=== PATIENT | male | born 1980 | race Two or more races ===

== ENCOUNTER 2025-04-30 16:36 | Inpatient (IN) | payer MEDICAID, SELFPAY ==
[2025-04-30] VITALS (38 sets, daily range): BP systolic 81–142; BP diastolic 53–86; PULSE 69–139; RESP 13–29; TEMP 36.8; O2SAT 94–100; BMI 53.8
[2025-04-30] MEDS: LORazepam 2 MG/ML VIAL IVP (16:44)
--- NOTE | 2025-04-30 16:47 | EDNOTE_ITS ---
ED Seizures RME/HPI General Chief Complaint: Seizure Stated Complaint: SEIZURE Time Seen by Provider: 04/30/25 17:13 Arrival date/time: 04/30/25 16:36 Limitations: no limitations RME / HPI RME / HPI Narrative: 45 year old male with history of diabetes presents to the ED BIBA from home for evaluation following a seizure today. Per medics, mother on scene reported hearing a strange noise coming from the patients room. States she found the patient seizing and called 911. Medics state on their arrival, he was in a postictal state, GCS of 5, with snoring respirations. States shortly after the patient became combative, agitated, and began fighting. Reportedly while loading him on to the gurney they witnessed patient having a tonic-clonic seizure, lasting 1 minute. Prehospital BS 315. Mother denies any history of seizures. Related Data Allergies Allergy/AdvReac Type Severity Reaction Status Date / Time No Known Allergies Allergy Verified 06/08/18 17:38 Review of Systems Review of Systems ROS Unobtainable: unobtainable due to mental status Past Medical History Past Medical History CARDIAC: Negative Congestive Heart Failure RESPIRATORY: Negative Chronic Obstructive Pulmonary Disease (COPD) GENITOURINARY: Negative Renal Disease ENDOCRINE: Positive Diabetes Mellitus Type 2; Negative Diabetes Mellitus Type 1 Social History SMOKING STATUS: Unknown if ever smoked ED Exam General Limitations: Present no limitations General appearance: Present obese and other (Patient arrived combative, agitated with intermittent agonal respirations) Head Head exam: Present atraumatic Eye Eye exam: Present EOMI ENT ENT exam: Present normal exam, normal oropharynx and mucous membranes moist Neck Neck exam: Present normal inspection, full ROM and trachea midline Chest Chest inspection: Present normal inspection and symmetric chest wall rise Respiratory Respiratory exam: Present normal lung sounds bilaterally and other (Intermittent agonal respirations, saturating 93-94% on room air) Cardiovascular Cardiovascular exam: Present normal rhythm, tachycardia and normal heart sounds Abdominal Exam Abdominal exam: Present soft and normal bowel sounds Extremities Exam Extremities exam: Present normal inspection and full ROM; Absent pedal edema Neurological Exam Neurological exam: Present other (Patient arrived combative, agitated, nonresponsive to verbal stimuli, responsive to painful stimuli, does not answer questions. 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 NOW Care 04/30/25 17:21 Active Continuous Pulse Oximetry NOW Care 04/30/25 17:21 Active Emergency Titration Protocol Stat Care 04/30/25 18:19 Ordered Flu & Pneumonia Vaccine Screen ONCE Care 04/30/25 19:10 Active Insert IV NOW Care 04/30/25 17:21 Active Intubation NOW Care 04/30/25 17:07 Completed NPO NOW Care 04/30/25 19:11 Active Neuro Check Q1H Care 04/30/25 19:10 Active Notify provider NEEDED Care 04/30/25 19:11 Active Seizure precautions NEEDED Care 04/30/25 19:11 Active Diet NPO (NOW) Diet 04/30/25 19:[address] abdomen pelvis wo con Stat Exams 04/30/25 19:[address] angio abdomen pelvis Stat Exams 04/30/25 19:[address] head/brain wo con Stat Exams 04/30/25 17:21 Stop Req XR chest 1V portable Stat Exams 04/30/25 17:21 Completed ABG [Arterial Blood Gas] Stat Lab 04/30/25 21:00 Ordered Arterial Blood Gas Stat Lab 04/30/25 18:19 Completed Blood Culture (Lab) Stat Lab 04/30/25 18:55 Received CBC AM DRAW Lab 05/01/25 05:00 Ordered CBC AM DRAW Lab 05/02/25 05:00 Ordered CBC AM DRAW Lab 05/03/25 05:00 Ordered CBC Stat Lab 04/30/25 16:55 Completed Comprehensive Metabolic Panel Stat Lab 04/30/25 16:55 Completed Lactate (Lactic Acid) Stat Lab 04/30/25 16:55 Results Lactic Acid [Lactate (Lactic Acid)] Q4H Lab 04/30/25 19:13 Ordered Lactic Acid [Lactate (Lactic Acid)] Q4H Lab 04/30/25 23:13 Ordered Lactic Acid [Lactate (Lactic Acid)] Q4H Lab 05/01/25 03:13 Ordered Lactic Acid [Lactate (Lactic Acid)] Q4H Lab 05/01/25 07:13 Ordered Lactic Acid [Lactate (Lactic Acid)] Q4H Lab 05/01/25 11:13 Ordered Lipid Panel AM DRAW Lab 05/01/25 05:00 Ordered Magnesium AM DRAW Lab 05/01/25 05:00 Ordered Magnesium AM DRAW Lab 05/02/25 05:00 Ordered Magnesium AM DRAW Lab 05/03/25 05:00 Ordered Magnesium [Magnesium] Stat Lab 04/30/25 16:55 Completed Path Review Blood Smear Stat Lab 04/30/25 16:55 Completed Phosphorous Stat Lab 04/30/25 16:55 Completed Prothrombin Time with INR Stat Lab 04/30/25 16:55 Completed Renal Function Panel AM DRAW Lab 05/01/25 05:00 Ordered Renal Function Panel AM DRAW Lab 05/02/25 05:00 Ordered Renal Function Panel AM DRAW Lab 05/03/25 05:00 Ordered Sputum Culture and Gram Stain Routine Lab 04/30/25 17:36 Received Urinalysis Stat Lab 04/30/25 17:29 Completed Acetaminophen Ivpb [Ofirmev Inj] Med 04/30/25 19:13 Active 1,000 mg in 100 ml IV Q6HR Enoxaparin [Lovenox] Med 04/30/25 21:00 Active 40 mg SC QPM Etomidate Inj [Amidate Inj] Med 04/30/25 16:42 Discontinued 20 mg .ROUTE .STK-MED ONE LORazepam [Ativan Inj] Med 04/30/25 16:42 Discontinued 2 mg .ROUTE .STK-MED ONE LORazepam [Ativan Inj] Med 04/30/25 16:46 Discontinued 2 mg IVP X1 ONE Ondansetron Inj [Zofran Inj] Med 04/30/25 19:10 Active 4 mg IVP Q6H PRN Propofol 1,000 mg Ivpb [Diprivan Ivpb] Med 04/30/25 17:10 Discontinued 1,000 mg in 100 ml IV .STK-MED Propofol 1,000 mg Ivpb [Diprivan Ivpb] Med 04/30/25 17:14 Active 1,000 mg in 100 ml IV 5 mcg/kg/min Propofol Inj [Diprivan Inj] Med 04/30/25 17:13 Discontinued 150 mg IV X1 ONE Propofol Inj [Diprivan Inj] Med 04/30/25 17:15 Discontinued 200 mg IV .STK-MED ONE Propofol Inj [Diprivan Inj] Med 04/30/25 17:54 Discontinued 200 mg IV X1 ONE Propofol Inj [Diprivan Inj] Med 04/30/25 17:26 Discontinued 50 mg IV X1 ONE Ringers Lactated 1000 ml [Lactated Ringers] 1,000 ml Med 04/30/25 19:10 Active IV 999 mls/hr Sodium Chloride 0.9% 1000 ml [Ns] 1,000 ml Med 04/30/25 17:21 Discontinued IV 999 mls/hr Sodium Chloride 0.9% 1000 ml [Ns] 1,000 ml Med 04/30/25 19:10 Active IV 999 mls/hr Succinylcholine Inj [Anectine Inj] Med 04/30/25 16:46 Discontinued 150 mg IV X1 ONE Succinylcholine Inj [Anectine Inj] Med 04/30/25 16:43 Discontinued 200 mg .ROUTE .STK-MED ONE cefTRIAXone [Rocephin] 2 gm Med 04/30/25 17:24 Discontinued SODIUM CHLORIDE 0.9% (Popper) [Ns 0.9% (P)] 50 ml IV X1 cefTRIAXone/D5w 1gm IV premix [Rocephin/D5w 1gm IV Med 05/01/25 09:00 Active premix] 1 gm in 50 ml IV QDAY fentaNYL 2,500 MCG/250 ML BAG [Sublimaze Inj 2,500 MCG/ Med 04/30/25 18:53 Active 250 ML BAG] 2,500 mcg in 250 ml IV 25 mcg/hr levETIRAcetam INJ [Keppra Inj] Med 04/30/25 16:45 Discontinued 1,000 mg IVP X1 ONE Code Status Routine Oth 04/30/25 19:10 Ordered EKG (RT) Stat RT 04/30/25 19:10 Ordered Volume Ventilator Stat RT 04/30/25 17:08 Active Vital Signs Vital signs: Vital Signs Pulse Rate 139 H 04/30/25 16:46 Respiratory Rate 24 H 04/30/25 16:46 Blood Pressure 88/63 L 04/30/25 16:46 Pulse Oximetry (%) 97 04/30/25 16:46 Oxygen Delivery Method Room Air 04/30/25 16:46 Pulse ox is 97% on room air which is adequate. PROCEDURES: Intubation Time out performed: Yes sedative: other (2mg Ativan IVP ) paralytic: Succinylcholine Mg Given: 150 Laryngoscope: fiber optic video scope Assist Device Used: fiber optic device ET Tube Size: 8 ET Tube Uncuffed: No Tube Secured Depth (cm): 24 Tube Secured Location: lips Tube Placement Confirmation: visualized tube passing through cords, equal breath sounds bilaterally, no breath sounds over epigastrium and confirmation by capnometry Patient Tolerated Procedure: well and no complications Intubation Complications: none Seizure MDM Narrative MDM Narrative:: IAngela, kailyn scribing for and in the presence of Dr. Fagan. 1644: Given 2mg IVP Ativan. 1645: Patient witnessed having a seizure, lasting ~ 30 seconds. 1648: Given 150mg Succinylcholine. 165: Intubated with 8.0 ET measuring 24cm at the lip. BS 321. 1652: Given 1 gram of Keppra. 1725: Patient started on Propofol drip for sedation and I gave an 200mg IVP of Propofol. 1750: Notified by RN that the patient is not adequately sedation. Propofol was increased and plan to give a second IVP of Propofol. 1850: Notified by RN that the patient is moving in bed. Plan to wean off the Propol and switch sedation to Fentanyl drip. 1900: I spoke with ICU resident Dr. Velasquez. Discussed patients PMHx, HPI, ED course, exam findings, labs, and radiology results. Patient accepted for admission. Patient data External records reviewed:: [facility] previous records and EMS form Clinical information provided by:: EMS Social determinants that could affect healthcare access:: none Patient has the following chronic illnesses:: DM How is presenting disease/condition affected by chronic disease/condition?: uneffected by Evaluation data The following diagnostics were reviewed and interpreted by me:: lab results and radiology exam(s) Lab and/or radiology exams considered but not ordered:: None Interpretation Summary: Ordering Physician: Rolando Fagan MD Date of Service: 04/30/25 Procedure(s): XR chest 1V portable Accession Number(s): [id number] cc: Rolando Fagan MD; Hector Preston MD; NO PRIMARY/FAMILY,PHYSICIAN~ EXAMINATION: AP chest single view TECHNIQUE: AP portable supine chest single view Date and time: April 30, 2025, 1819 hours INDICATIONS: Cough and shortness of breath today. FINDINGS: Mild prominence left ventricle Endotracheal tube tip 6 cm above luis armando. Orogastric tube in the stomach, the tip is below the level of the film Moderate vascular congestion. No aspiration pneumonia IMPRESSION: Mild enlargement left ventricle Moderate vascular congestion Dictated By: Hector Preston MD Signed By: <Electronically signed by Hector Preston MD in OV> 04/30/25 8338 Medications / Prescriptions Medications or Prescriptions considered but not ordered:: None Medication administrations:: Medication Administration History Enoxaparin Sodium (Enoxaparin Sod Inj 40 Mg/0.4 Ml Syringe) 40 mg SC QPM CRISTIANA Stop: 05/14/25 20:59 Propofol (Diprivan Ivpb) 1,000 mg in 100 mls @ 5.105 mls/hr IV .[id number] PRN; Protocol PRN Reason: PER PROTOCOL Stop: 05/30/25 17:13 Last Titration: 04/30/25 18:46 Dose: 30 mcg/kg/min, 30.633 mls/hr Documented By: Titration: 04/30/25 17:54 Dose: 25 mcg/kg/min, 25.527 mls/hr Documented By: Titration: 04/30/25 17:30 Dose: 10 mcg/kg/min, 10.211 mls/hr Documented By: Admin: 04/30/25 17:25 Dose: 5 mcg/kg/min, 5.105 mls/hr Documented By: VIMAL Co-signed By: Fentanyl Citrate (Sublimaze Inj 2,500 Mcg/250 Ml Bag) 2,500 mcg in 250 mls @ 2.5 mls/hr IV .Q24H PRN; Protocol PRN Reason: PER PROTOCOL Stop: 05/05/25 18:52 Last Admin: 04/30/25 19:12 Dose: 25 mcg/hr, 2.5 mls/hr Documented By: Co-signed By: SANTK2 Acetaminophen (Ofirmev Inj) 1,000 mg in 100 mls @ 250 mls/hr IV Q6HR PRN PRN Reason: fever >99.9 Stop: 05/01/25 12:23 Lactated Ringer's (Lactated Ringers) 1,000 mls @ 999 mls/hr IV .Q1H1M ONE Stop: 04/30/25 20:10 Sodium Chloride (Ns) 1,000 mls @ 999 mls/hr IV .Q1H1M ONE Stop: 04/30/25 20:10 Ceftriaxone Sodium/Dextrose (Rocephin/D5w 1gm Iv Premix) 1 gm in 50 mls @ 100 mls/hr IV QDAY CRISTIANA Stop: 05/07/25 08:59 Ondansetron HCl (Ondansetron Inj 2 Mg/Ml Inj 2 Ml) 4 mg IVP Q6H PRN; Protocol PRN Reason: NAUSEA OR VOMITING Stop: 05/30/25 19:09 Discontinued Medications Etomidate (Etomidate Inj 2 Mg/Ml Vial 10 Ml) Confirm Administered Dose 20 mg .ROUTE .STK-MED ONE Stop: 04/30/25 16:43 Last Admin: 04/30/25 17:19 Dose: Not Given Documented By: VIMAL Non-Admin Reason: Cancelled by Provider Propofol (Diprivan Ivpb) Confirm Administered Dose 1,000 mg in 100 mls @ ud IV .STK-MED ONE Stop: 04/30/25 17:11 Last Admin: 04/30/25 17:24 Dose: Not Given Documented By: VIMAL Non-Admin Reason: Override Medication Sodium Chloride (Ns) 1,000 mls @ 999 mls/hr IV .Q1H1M ONE Stop: 04/30/25 18:21 Last Admin: 04/30/25 18:04 Dose: 999 mls/hr Documented By: DO Ceftriaxone Sodium 2 gm/ (Sodium Chloride) 50 mls @ 100 mls/hr IV X1 ONE Stop: 04/30/25 17:53 Last Infusion: 04/30/25 18:47 Dose: Infused Documented By: Admin: 04/30/25 18:11 Dose: 100 mls/hr Documented By: DO Levetiracetam (Levetiracetam Inj 100 Mg/Ml Vial 5ml) 1,000 mg IVP X1 ONE Stop: 04/30/25 16:46 Last Admin: 04/30/25 17:23 Dose: 1,000 mg Documented By: VIMAL Lorazepam (Lorazepam 2 Mg/Ml Vial) Confirm Administered Dose 2 mg .ROUTE .STK- MED ONE Stop: 04/30/25 16:43 Last Admin: 04/30/25 16:49 Dose: Not Given Documented By: VIMAL Non-Admin Reason: Duplicate Medication on eMAR Lorazepam (Lorazepam 2 Mg/Ml Vial) 2 mg IVP X1 ONE Stop: 04/30/25 16:47 Last Admin: 04/30/25 16:44 Dose: 2 mg Documented By: LF Propofol (Propofol Inj 10 Mg/Ml Vial 20 Ml) Confirm Administered Dose 200 mg IV .STK-MED ONE Stop: 04/30/25 17:16 Last Admin: 04/30/25 17:26 Dose: Not Given Documented By: LF Non-Admin Reason: Duplicate Medication on eMAR Propofol (Propofol Inj 10 Mg/Ml Vial 20 Ml) 150 mg IV X1 ONE Stop: 04/30/25 17:14 Last Admin: 04/30/25 17:18 Dose: 150 mg Documented By: DO Comments: GIVEN BY DR FAGAN TO 20G LEFT HAND Propofol (Propofol Inj 10 Mg/Ml Vial 20 Ml) 50 mg IV X1 ONE Stop: 04/30/25 17:27 Last Admin: 04/30/25 18:15 Dose: 50 mg Documented By: DO Comments: GIVEN BY DR FAGAN TO 20G LEFT HAND. USED REMAINDER OF PRIOR 150 DOSE TO EQUAL 200MG Propofol (Propofol Inj 10 Mg/Ml Vial 20 Ml) 200 mg IV X1 ONE Stop: 04/30/25 17:55 Last Admin: 04/30/25 18:00 Dose: 200 mg Documented By: DO Comments: GIVEN BY DR FAGAN TO 20G L HAND Succinylcholine Chloride (Succinylcholine Inj 20 Mg/Ml Vial 10 Ml) Confirm Administered Dose 200 mg .ROUTE .STK-MED ONE Stop: 04/30/25 16:44 Last Admin: 04/30/25 16:49 Dose: Not Given Documented By: LF Non-Admin Reason: Duplicate Medication on eMAR Succinylcholine Chloride (Succinylcholine Inj 20 Mg/Ml Vial 10 Ml) 150 mg IV X1 ONE Stop: 04/30/25 16:47 Last Admin: 04/30/25 16:48 Dose: 150 mg Documented By: LF See above Consultations Consultation(s) initiated? (list below): Yes Consultation #1 (Physician, Specialty, Details): See above Diagnosis Seizure Differential Diagnosis: intractable seizure disorder, new onset seizure, epileptic seizure and status epilepticus Most likely diagnosis given after review of the tests above:: New onset seizure Respiratory failure Elevated lactic acid Leukocytosis Admission Indicated Admission indicated?: indicated Admission Request Was there a request for admission?: Yes Admission Attestation Admission request attestation: Discussed case with [] from Hospitalist service regarding admission. Discussed patients ED course, exam findings, labs, and radiology results. The Hospitalist [agrees,declines] to accept the patient for admission. Disposition Plan Disposition Plan: Admit Critical Care Time Critical Care Time Critical Care Time: Yes Total Critical Care Time (min.): 60 Attestation: The high probability of sudden, clinically significant deterioration in the patient's condition required the highest level of my preparedness to intervene urgently. The services I provided to this patient were to treat and/or prevent clinically significant deterioration. Services included the following: chart data review, reviewing nursing notes and/or old charts, documentation time, performance management consultant collaboration regarding findings and treatment options, medication orders and management, direct patient care, vital sign assessments and ordering, interpreting and reviewing diagnostic studies and lab tests. Aggregate critical care time includes only time during which I was engaged in work directly related to the patient's care, as described above, whether at bedside or elsewhere in the Emergency Department. It did not include time spent performing other reported procedures or the services of residents, students, nurses or physician assistants. Discharge Plan Plan Patient Disposition: Admit Acute Care w/in Hospital Problem List Clinical Impression: New onset seizure, Respiratory failure, Elevated lactic acid level, Leukocytosis
[2025-04-30] MEDS: SUCCINYLCHOLINE INJ 20 MG/ML VIAL 10 ML 150 MG IV (16:48)
[2025-04-30] MEDS: PROPOFOL INJ 10 MG/ML VIAL 20 ML 150 MG IV (17:18)
--- NOTE | 2025-04-30 17:21 | XR_ITS ---
EXAMINATION: AP chest single view TECHNIQUE: AP portable supine chest single view Date and time: April 30, 2025, 181 hours INDICATIONS: Cough and shortness of breath today. FINDINGS: Mild prominence left ventricle Endotracheal tube tip 6 cm above luis armando. Orogastric tube in the stomach, the tip is below the level of the film Moderate vascular congestion. No aspiration pneumonia IMPRESSION: Mild enlargement left ventricle Moderate vascular congestion
[2025-04-30] MEDS: levETIRAcetam INJ 100 MG/ML VIAL 5ML 1000 MG IVP (17:23)
[2025-04-30] MEDS: PROPOFOL 1,000 MG IVPB 1,000 MG/100 ML VIAL 5.105 MG IV (17:25)
[2025-04-30 17:48] LABS: Basophils # (Auto) 0.1 Thou/mm3 (0.0-0.2); Basophils % (Auto) 0 % (0-2.5); Eosinophils # (Auto) 0.3 Thou/mm3 (0.0-0.5); Eosinophils % (Auto) 2 % (0-10); Hematocrit 46.2 % (41.0-53.0); Hemoglobin 15.2 g/dL (13.5-16.0); Immature Granulocytes Auto 0.23 Thou/mm3 (0.00-0.00); Lymphocytes # (Auto) 9.2 Thou/mm3 (1.0-4.8); Lymphocytes % (Auto) 47 % (10-50); Mean Corpuscular HGB Conc 32.9 g/dl (31.0-37.0); Mean Corpuscular Hemoglobin 30.2 pg (25.0-35.0); Mean Corpuscular Volume 92 fL (80-100); Monocytes # (Auto) 1.7 Thou/mm3 (0.0-0.8); Monocytes % (Auto) 9 % (0-12); Neutrophils # (Auto) 8.1 Thou/mm3 (1.8-7.7); Neutrophils % (Auto) 41 % (37-80); Nucleated Red Blood Cell # 0.00 Thou/mm3 (0.00-0.00); Nucleated Red Blood Cell % 0 /100 WBC (0); Platelet Count 284 Thou/mm3 (140-440); RDW Standard Deviation 45.4 fL (35.1-43.9); Red Blood Count 5.04 Miln/mm3 (4.50-5.90); White Blood Count 19.6 Thou/mm3 (3.8-10.6)
[2025-04-30 17:54] LABS: Lactate (Lactic Acid) 15.0 mMol/L (0.4-2.0)
[2025-04-30] MEDS: PROPOFOL INJ 10 MG/ML VIAL 20 ML 200 MG IV (18:00)
[2025-04-30 18:03] LABS: Collection Type, Urine Clean Catch
[2025-04-30] MEDS: SODIUM CHLORIDE 0.9% 1000 ML 1,000 ML 999 ML IV ×2 (18:04→20:08)
[2025-04-30 18:07] LABS: Alanine Aminotransferase 39 U/L (10-49); Albumin, Serum 4.6 gm/dL (3.5-5.0); Albumin/Globulin Ratio 1.2 (1.2-2.2); Alkaline Phosphatase 113 U/L (46-116); Anion Gap 22 (7-16); Aspartate Amino Transferase 30 U/L (0-34); BUN/Creatinine Ratio 13 Ratio (12-20); Bilirubin,Total 0.5 mg/dL (0.3-1.2); Blood Urea Nitrogen 13 mg/dL (9-23); Calcium 9.1 mg/dL (8.3-10.6); Calcium (Corrected) 9.1 mg/dL (8.5-10.1); Carbon Dioxide 19.9 mMol/L (20.0-31.0); Chloride 101 mMol/L (98-107); Creatinine (Component) 1.0 mg/dL (0.6-1.3); Estimated Creatinine Clearance 144.5 mL/min (>60); Globulin 3.7 gm/dL (2.3-3.5); Glucose 352 mg/dL (74-106); Magnesium 2.2 mg/dL (1.6-2.6); Osmolality,Calculated 299 (275-295); Phosphorous 5.5 mg/dL (2.4-5.1); Potassium 3.7 mMol/L (3.4-5.1); Sodium 143 mMol/L (136-145); Total Protein 8.3 gm/dL (5.7-8.2); eGFR > 60 See Note
[2025-04-30] MEDS: cefTRIAXone 2 GM in SODIUM CHLORIDE 0.9% (Popper) 50 ML IV (18:11)
[2025-04-30] MEDS: PROPOFOL INJ 10 MG/ML VIAL 20 ML 50 MG IV (18:15)
[2025-04-30 18:21] LABS: INR 1.1 (0.9-1.3); Prothrombin Time 11.4 Seconds (9.0-12.2)
[2025-04-30 18:27] LABS: Bacteria,Urine Rare; Bilirubin,Urine Negative (Negative); Blood,Urine 1+ (Negative); Clarity,Urine Turbid (Clear/Hazy); Color,Urine Lt-Yellow (Lt Yel-Yel); Glucose, Urine 4+ (Negative); Hyaline Casts,Urine 9 /hpf (0-1); Ketones,Urine Trace (Negative); Leukocyte Esterase,Urine Negative (Negative); Nitrite,Urine Negative (Negative); PH,Urine 6.0 (5.0-7.0); Protein,Urine 2+ (Neg - Trace); RBC,Urine 15 /hpf (0-3); Specific Gravity,Urine 1.025 (1.001-1.035); Squamous Epithelial Cell,Urine 10 /hpf (0-5); Urobilinogen,Urine Negative mg/dL (0.0-1.0); WBC,Urine 9 /hpf (0-5)
[2025-04-30 18:34] LABS: Base Excess -4 (-3-3); HCO3 23 mEq/L (20-26); Inspired Oxygen, FIO2 21 %; O2 Saturation 100 % (91-98); PCO2 48 mmHg (32.0-48.0); PO2 191 mmHg (83-108); pH, Arterial 7.28 (7.35-7.45)
[2025-04-30 18:35] LABS: Allen Test Not Performed; Puncture Site Right Brachial
--- NOTE | 2025-04-30 18:50 | PC.NURSE ---
INFORMED DR FAGAN THAT PT IS MOVING AND OPENING EYES. PER DR FAGAN HE WILL ORDER ANOTHER SEDATION MEDICATION AND WANTS TO TITRATE PT OFF PROPOFOL AT THIS TIME
[2025-04-30] MEDS: fentaNYL 2,500 MCG/250 ML BAG 2,500 MCG/250 ML BAG IV (19:12)
--- NOTE | 2025-04-30 19:15 | XR_ITS ---
Examination: CT abdomen and pelvis without contrast. Coronal 3-D reconstructions. Sagittal 2-D reconstructions. Date and time of exam: April 30, 2025, 2025 hours INDICATIONS: Abdominal pain today, clinical diagnosis mesenteric ischemia CTDI: vol (mGy): 27.51 DLP: (mGycm): 1788 Technique: Axial images of the abdomen have been obtained, 3 mm slice thickness Intravenous contrast material has not been administered. Low dose protocols were performed. One or more of the following dose reduction techniques were used; automated exposure control, adjustment of the mA and/or KV according to patient size, use of iterative reconstruction technique. Findings: Bibasilar pneumonia No visualized liver or splenic lesion Gallstones Gallbladder wall appears thickened No pancreatic or adrenal mass No renal or ureteral calculi No hydronephrosis Colonic diverticulosis, no diverticulitis Normal appendix No bowel obstruction Urinary bladder contracted around a [place] catheter Grade 1 spondylolisthesis L5 on S1 with advanced degenerative disc disease L5-S1 IMPRESSION: Bibasilar pneumonia Recommend hepatobiliary sonography follow-up to exclude calculus cholecystitis No ischemic bowel noted on this limited noncontrast study, if ischemic bowel is a clinical consideration recommend CTA abdomen/pelvis post contrast follow-up Colonic diverticulosis No bowel obstruction
[2025-04-30 19:17] LABS: Path Review Blood Smear Sent to Pathologist
[2025-04-30 19:58] LABS: Creatine Kinase 57 U/L (34-171)
[2025-04-30] MEDS: RINGERS LACTATED 1000 ML 1,000 ML 999 ML IV (20:09)
[2025-04-30] MEDS: PROPOFOL 1,000 MG IVPB 1,000 MG/100 ML VIAL 30.633 MG IV ×2 (20:09→23:36)
--- NOTE | 2025-04-30 20:10 | XR_ITS ---
Examination: CT brain head without contrast. 2-D sagittal coronal reconstructions Date and time of exam: April 30, 2025, 2023 hours,. INDICATIONS: Altered mental status today CTDI: vol (mGy): 68.1 DLP: (mGycm): 1421 Technique: Multiple CT axial sections of the brain have been obtained, 5 mm slice thickness. Contrast has not been administered. 2-D sagittal, coronal reconstructions have been obtained Low dose protocols were performed. One or more of the following dose reduction techniques were used; automated exposure control, adjustment of the mA and/or KV according to patient size, use of iterative reconstruction technique. Findings: 32 x 30 mm calcified tumor mass left frontal convexity with marked surrounding edema Shift of the frontal horns to the right at least 5 mm Ventricles are not enlarged Fourth ventricle midline Cranial vault intact IMPRESSION: 32 x 30 mm calcified tumor mass left frontal convexity with marked surrounding edema, most consistent with meningioma Recommend MRI brain follow-up pre and postcontrast
[2025-04-30 20:44] LABS: Reflex Lactate? Y
--- NOTE | 2025-04-30 20:46 | ESHP_ITS ---
Documentation for date of: 04/30/25 HPI History of Present Illness History of present illness: Chief complaint: New onset seizure-like activity, unresponsive HPI: Mr. Aldrich is a 45-year-old male with medical issues of obesity BMI 53.8, no known medical conditions, who was brought into the ED from home by ambulance after seizure-like activity at home. Most of the history obtained from ED documentation, as per mother at bedside, patient has never had this seizure-like symptoms in the past. Paramedics reported that mother was present at the scene and witnessed hearing strange noises from the patient's room. When paramedics arrived at scene patient was in a postictal state, GCS of 5 and snoring. After about 5-10 minutes patient became combative agitated followed by a tonic-clonic seizure lasting about 1 minute. Fingerstick blood glucose check en route to the hospital was 315. In the ED, vitals showed Tachycardia 128-130 bpm, tachypnea 21?24, blood pressure 153/83., Temp within normal limits. Initial blood work was remarkable for WBC 19.6 with lymphocyte and neutrophil predominance, chemistry panel showed blood glucose 352, hyperphosphatemia 5.5. ABG showed pH 7.28, CO2 48 and bicarb 19.9 on CHEM panel. Lactic acid 15 at 7 PM lab draw. Urinalysis remarkable for 2+ protein, 4+ glucose, 1+ blood, 15 RBC, 10 epithelial cells and 9 hyaline cast, 9 WBC and rare bacteria. On imaging, chest x-ray remarkable for mild perihilar congestion, no consolidations noted. CT abdomen pelvis showed colonic diverticulosis, thickened gallbladder, but no signs of ischemic bowel. Head CT ordered by ED, but not taken. Patient was given 2 L bolus in the ED, in addition to 1 g loading dose of Keppra. He was also started on propofol and fentanyl post intubation. He was also given loading dose 2 g Rocephin for possible UTI. ED attending Dr. Garcia called night hospitalist team at 1904 on 04/30/2025. Per ED physician, he contacted medical imaging technician Dr. Lynn and provided this patient information. Per Dr Garcia- Dr Lynn recommended admission to ICU. Patient was admitted for new onset seizures s/p intubation. Neurology consulted for further recommendations. Pending Head CT at this time of admission. Review of Systems Review of Systems ROS Unobtainable: unobtainable due to mental status Exam Vital Signs Temp Pulse Resp BP Pulse Ox O2 Del Method FiO2 98.2 F 90 18 81/58 L 100 Mechanical Ventilation 100 04/30/25 19:57 04/30/25 19:57 04/30/25 19:57 04/30/25 19:57 04/30/25 19:57 04/30/25 19:57 04/30/25 17:22 Narrative Exam Constitutional Large body habitus, Obese BMI 53 HEENT Vision grossly intact, PERRL. Patent nares. Trachea midline. Intubated on MV Respiratory Chest normal on inspection, breath sounds on auscultation bilaterally. Cardiovascular S1 and S2 audible, RRR. No murmurs or carotid bruit. No gross JVD. Abdominal Soft and BS + Musculoskeletal Extremities tone within normal limits. No LE edema. Neurological Minimally responsive to pain, GCS E2 V(NT) M4 Skin Small LT buttock abscess/folliculitis, draining purulent discharge Results: Labs 05/02/25 04:35 05/02/25 19:50 Labs: Short CBC 04/30/25 Range/Units 16:55 WBC 19.6 H (3.8-10.6) Thou/mm3 Hgb 15.2 (13.5-16.0) g/dL Hct 46.2 (41.0-53.0) % Plt Count 284 (140-440) Thou/mm3 BMP 04/30/25 16:55 Sodium 143 Potassium 3.7 Chloride 101 Carbon Dioxide 19.9 L BUN 13 Creatinine 1.0 Glucose 352 H Calcium 9.1 Cardiac Enzymes 04/30/25 Range/Units 16:55 Total Creatine Kinase 57 (34-171) U/L Liver Function 04/30/25 Range/Units 16:55 Total Bilirubin 0.5 (0.3-1.2) mg/dL AST 30 (0-34) U/L ALT 39 (10-49) U/L Alkaline Phosphatase 113 (46-116) U/L Albumin 4.6 (3.5-5.0) gm/dL Urine 04/30/25 Range/Units 17:29 Urine Color Lt-Yellow (Lt Yel-Yel) Urine Clarity Turbid A (Clear/Hazy) Urine pH 6.0 (5.0-7.0) Ur Specific [place] 1.025 (1.001-1.035) Urine Protein 2+ A (Neg - Trace) Urine Glucose (UA) 4+ A (Negative) ABG Interpretation ABG results: 04/30/25 18:19 ABG pH 7.28 L ABG pCO2 48 ABG pO2 191 H ABG HCO3 23 ABG O2 Saturation 100 H ABG Base Excess -4 L Quality Measures Quality Measures VTE prophylaxis Medications Home Medications and Allergies Home Medications ?Medication ?Instructions ?Recorded ?Confirmed ?Type No Known Home Medications 05/02/2504/09 History Allergies Allergy/AdvReac Type Severity Reaction Status Date / Time No Known Allergies Allergy Verified 06/08/18 17:38 Visit Medications Enoxaparin Sodium (Enoxaparin Sod Inj 40 Mg/0.4 Ml Syringe) 40 mg SC QPM [facility] Stop: 05/14/25 20:59 Propofol (Diprivan Ivpb) 1,000 mg in 100 mls @ 5.105 mls/hr IV .[id number] PRN; Protocol PRN Reason: PER PROTOCOL Stop: 05/30/25 17:13 Last Admin: 04/30/25 20:09 Dose: 30 mcg/kg/min, 30.633 mls/hr Acetaminophen (Ofirmev Inj) 1,000 mg in 100 mls @ 250 mls/hr IV Q6HR PRN PRN Reason: fever >99.9 Stop: 05/01/25 12:23 Ceftriaxone Sodium/Dextrose (Rocephin/D5w 1gm Iv Premix) 1 gm in 50 mls @ 100 mls/hr IV QDAY CRISTIANA Stop: 05/07/25 08:59 Midazolam HCl (Versed Pf Inj In Ns Premix) 100 mg in 100 mls @ 1 mls/hr IV .Q24H PRN; Protocol PRN Reason: PER PROTOCOL Stop: 05/05/25 19:48 Ondansetron HCl (Ondansetron Inj 2 Mg/Ml Inj 2 Ml) 4 mg IVP Q6H PRN; Protocol PRN Reason: NAUSEA OR VOMITING Stop: 05/30/25 19:09 Discontinued Medications Sodium Chloride (Ns) 1,000 mls @ 999 mls/hr IV .Q1H1M ONE Stop: 04/30/25 18:21 Last Admin: 04/30/25 18:04 Dose: 999 mls/hr Ceftriaxone Sodium 2 gm/ (Sodium Chloride) 50 mls @ 100 mls/hr IV X1 ONE Stop: 04/30/25 17:53 Last Infusion: 04/30/25 18:47 Dose: Infused Fentanyl Citrate (Sublimaze Inj 2,500 Mcg/250 Ml Bag) 2,500 mcg in 250 mls @ 2.5 mls/hr IV .Q24H PRN; Protocol PRN Reason: PER PROTOCOL Stop: 05/05/25 18:52 Last Titration: 04/30/25 19:34 Dose: 200 mcg/hr, 20 mls/hr Lactated Ringer's (Lactated Ringers) 1,000 mls @ 999 mls/hr IV .Q1H1M ONE Stop: 04/30/25 20:10 Last Admin: 04/30/25 20:09 Dose: 999 mls/hr Sodium Chloride (Ns) 1,000 mls @ 999 mls/hr IV .Q1H1M ONE Stop: 04/30/25 20:10 Last Admin: 04/30/25 20:08 Dose: 999 mls/hr Levetiracetam (Levetiracetam Inj 100 Mg/Ml Vial 5ml) 1,000 mg IVP X1 ONE Stop: 04/30/25 16:46 Last Admin: 04/30/25 17:23 Dose: 1,000 mg Lorazepam (Lorazepam 2 Mg/Ml Vial) 2 mg IVP X1 ONE Stop: 04/30/25 16:47 Last Admin: 04/30/25 16:44 Dose: 2 mg Propofol (Propofol Inj 10 Mg/Ml Vial 20 Ml) 150 mg IV X1 ONE Stop: 04/30/25 17:14 Last Admin: 04/30/25 17:18 Dose: 150 mg Propofol (Propofol Inj 10 Mg/Ml Vial 20 Ml) 50 mg IV X1 ONE Stop: 04/30/25 17:27 Last Admin: 04/30/25 18:15 Dose: 50 mg Propofol (Propofol Inj 10 Mg/Ml Vial 20 Ml) 200 mg IV X1 ONE Stop: 04/30/25 17:55 Last Admin: 04/30/25 18:00 Dose: 200 mg Succinylcholine Chloride (Succinylcholine Inj 20 Mg/Ml Vial 10 Ml) 150 mg IV X1 ONE Stop: 04/30/25 16:47 Last Admin: 04/30/25 16:48 Dose: 150 mg Assessment & Plan Plan Patient is a 45 year old male admitted for seizures, new onset s/p intubation for resp support. NEURO Intractable seizure, new onset Acute encephalopathy On sedation Dx: - Per mother and paramedics, patient had new onset seizure-like activity at home and was brought to the ED - He was given 2 L IV fluid bolus in the ED in addition to 1 g loading dose of Keppra - Patient was intubated in the ED to protect airway - Patient was also started on fentanyl and propofol for sedation after intubation. - Received call for admission @ 1904. Per ED physician, sign out given to Dr. Lynn who recommended admission to ICU. Rx: - Admitted to ICU for further management - Head CT ordered change from routine to STAT at 1900. Follow-up results - Sedation changed to propofol and Versed, continue to maintain RASS goal - In-house neurology consulted for further evaluation - If acute findings of mass/midline shift on head CT, will start process to transfer patient for urgent neurosurgical intervention CVS No active problems PULM AHRF- Intubated on mech vent Dx: - Intubated in the ED to protect airway given declining mental status, GCS 3 - Started on propofol and fentanyl in the ED Rx: - Continue sedation with propofol and Versed - Continue management with MV: AC/VC VT 500 RR 18 PEEP 5 - Titrate down on sedatives, will reevaluate with q1H neurochecks GI/Hep Colonic diverticulosis GB thickening/calcification Dx: - CT abdomen pelvis : colonic diverticulosis, thickened gallbladder, but no signs of ischemic bowel. Rx: No active symptoms at this time RENAL Anion gap metabolic acidosis Hyperosmolar hyperNatremia Dx: - AG = 22, LA = 15 - CT abdomen pelvis does nto show ischemic bowel. - Corrected sodium= 147 (glucose 352) ; Osm 299 Rx: - Repeat lactic acid check every 4 hours. Anticipate improvement with IV hydration - Hold off on CT angio at this time, unless LA worsens - Patient was given 1 L LR bolus + 1 L NS bolus in the ED - q4H Renal Panel checks. Will give D5 or 1/2 NS if Na continues to worsen ENDO Morbid Obesity Uncontrolled DM Dx: - BMI 53.8, chronic - Patient is independent at home, able to carry ADLs without assistance - As per mother at bedside, no sudden weight gain or loss HEME/ONC No active problems ID UTI Dx: - Urinalysis : 2+ protein, 4+ glucose, 1+ blood, 15 RBC, 10 epithelial cells and 9 hyaline cast, 9 WBC and rare bacteria. - ED gave loading dose 2 g Rocephin Rx: - Continue Rocephin 1 g daily - Follow-up culture results ICU Health maintenance: Dispo: Admit to ICU for new onset seizure s/p intubation Diet: NPO DVT ppx: Enoxaparin 40mg SC daily GI ppx: not indicated Mechanical ventilation: Yes, Mode: ACVC Sedation: Yes, prop+ versed IV lines: 2 pIV Central line: No Arterial line: No Code status: FULL CODE Plan of care discussed with hospitalist Dr Calloway, - Curtis Velasquez MD PGY 3 This document was compiled using speech recognition software. Grammatical errors can be an occasional consequence of this system due to software limitations. Attending Provider Attestation/Addendum After being notified of patient's admission, I personally examined the patient in the ED and reviewed clinical data, CT head was ordered by ED provider but was not done as patient was not hemodynamically stable for transfer to imaging department, patient's levophed dose was increased to achieve hemodynamic stability and patient was moved to CT quickly after that, imaging of head showed a large calcified mass with midline shift, ICU team started transfer process to a higher level of care facility with NCC/NSGY. At this time patient is given 10mg of Dexamethasone, emergent tele-neurology consult ordered. TOTAL CC TIME: 75 MIN TOTAL TIME: 75 Minutes of direct medical management and planning of care. I Ramila Calloway MD, attest that I was physically present for [place] portions of evaluation, and examined patient, labs and imagings and plan of care was discussed with ICU resident after admission orders were placed, I agree with the findings and plans documented in my attestation.
--- NOTE | 2025-04-30 20:50 | PC.RT ---
pt taken to ct without complications on a ACVC of 500. rr18, fio2 100% once in icu titrated back to 70%
[2025-04-30 21:18] LABS: Base Excess -2 (-3-3); HCO3 25 mEq/L (20-26); Inspired Oxygen, FIO2 20 %; O2 Saturation 100 % (91-98); PCO2 50 mmHg (32.0-48.0); PO2 161 mmHg (83-108); pH, Arterial 7.31 (7.35-7.45)
[2025-04-30 21:19] LABS: Allen Test Performed/OK; Puncture Site Right Radial
--- NOTE | 2025-04-30 21:31 | PC.RT ---
fio2 titrated to 55% per abg results.
--- NOTE | 2025-04-30 21:33 | PC.RT ---
DR. Velasquez made aware of abg results RR increased to 20 per
[2025-04-30] MEDS: ENOXAPARIN SOD INJ 40 MG/0.4 ML SYRINGE SC (21:50)
[2025-04-30 22:44] LABS: Lactate (Lactic Acid) 1.6 mMol/L (0.4-2.0)
--- NOTE | 2025-04-30 23:59 | PC.NURSE ---
2200 reached out to [facility] transfer center faxed packet and pushed images 2300 reached out to [facility] faxed packet and pushed images 2320 [facility] declined transfer stated needs [facility]
[2025-05-01] VITALS (102 sets, daily range): BP systolic 79–134; BP diastolic 47–80; PULSE 66–103; RESP 12–28; TEMP 36.2–36.9; O2SAT 96–100; BMI 53.4; BMI 53.2
[2025-05-01] MEDS: DEXAMETHASONE SOD PHOS INJ 10 MG/ML VIAL IVP (00:49)
--- NOTE | 2025-05-01 01:08 | PD.TNEURO ---
Tele Neuro Consultation Consultation Date 05/01/25 Most Recent Vital Signs Last Vital Signs Temp 98.2 F 04/30/25 19:57 Pulse 72 04/30/25 21:34 Resp 13 04/30/25 20:45 BP 89/55 L 04/30/25 21:34 Pulse Ox 98 04/30/25 21:34 O2 Del Method Mechanical Ventilation 04/30/25 19:57 FiO2 55 04/30/25 21:34 Laboratory-Coagulation Panel PT 11.4 Seconds (9.0-12.2) 04/30/25 16:55 INR 1.1 (0.9-1.3) 04/30/25 16:55 Consultation Narrative [facility] TeleNeurology Consult Services Stat Consult Patient Name:???Torin Aldrich Date of :???1980 Identification Number:??? Date of Service:???04/30/2025 23:23:20 Diagnosis: ?D49.6 - Brain tumor ?G40.89 - Other seizures Impression 45 yo M who presented for evaluation of new-onset seizures in the setting of a large left frontal calcified mass with associated vasogenic edema. His neurologic exam was limited due to mental status s/p intubation but grossly non-focal. His seizures are likely focal-onset related to newly-diagnosed left frontal tumor (suspected to be a meningioma given its appearance). Recommend initiation of Keppra and transfer when able for further management as discussed below. Recommendations: Our recommendations are outlined below. 1) Load with additional Keppra 2000 mg (total 3000 mg loading dose) followed by 1500 mg BID thereafter 2) If ok with neurosurgery, may also be started on Decadron 4 mg Q6H for vasogenic edema 3) MRI brain w/wo contrast for further evaluation of left frontal tumor 4) Continuous EEG to rule out ongoing non-convulsive seizures 5) Patient otherwise needs transfer for neurosurgical evaluation (and oncology consult) for more definitive treatment options 6) Maintain seizure precautions 7) Maintain euglycemia; avoid hyper- and hypoglycemia as able 8) Will defer vent management to primary team Neurology follow up recommended. Metrics: Dispatch Time: 04/30/2025 23:23:20 Callback Response Time: 04/30/2025 23:26:55 Primary Provider Notified of Diagnostic Impression and Management Plan on: 05/01/2025 00:54:[address] head reviewed with a large calcified left frontal mass with associated vasogenic edema Chief Complaint: new-onset seizures History of Present Illness: Patient is a 45 year old Male. Patient presented for evaluation of new-onset seizure-like activity. He reportedly had a witnessed seizure with family (unclear semiology or duration as they are not currently at bedside) as well as one additional event on route to the ED with EMS. This second event was reportedly described as generalized tonic/clonic lasting about one minute. Afterwards, he was confused and agitated, ultimately requiring intubation. He does not have a known prior history of seizures. Further history is limited due to patient's mental status. Past Medical History: ?Diabetes Mellitus ?There is no history of Seizures Medications: Anticoagulant use:??Unknown Antiplatelet use:?Unknown Reviewed EMR for current medications Allergies:? NKDA Social History: Unable To Obtain Due To Patient Status :?Patient Is Obtunded/ Comatose Family History: Family History Cannot Be Obtained Because:Patient Is Obtunded/ Comatose ROS : 14 Points Review of Systems was performed and was negative except mentioned in HPI. Past Surgical History: Past Surgical History Cannot Be Obtained Because: Patient Is Obtunded/ Comatose Examination: BP(89/55),?Pulse(72),?Blood Glucose(315) Neuro Exam: Sedated with fentanyl and propofol; opens eyes to noxious stimuli, does not follow commands, no gaze deviation or facial droop noted at rest. Strength at least antigravity throughout Spoke with :?ICU team (on camera) This consult was conducted in real time using interactive audio and video technology. Patient was informed of the technology being used for this visit and agreed to proceed. Patient located in hospital and provider located at home/office setting. Patient is being evaluated for possible acute neurologic impairment and high probability of imminent or life - threatening deterioration.I spent total of 30 minutes providing care to this patient, including time for face to face visit via telemedicine, review of medical records, imaging studies and discussion of findings with providers, the patient and / or family. Dr Cali Ryan [facility] For Inpatient follow-up with [facility] physician please call [facility] at . As we are not an outpatient service for any post hospital discharge needs please contact the hospital for assistance. If you have any questions for the [facility] physicians or need to reconsult for clinical or diagnostic changes please contact us via [facility] at . Non-radiologist review of imaging performed to assist with emergent clinical decision-making. Remote physician workstations do not possess the same resolution, calibration, or diagnostic capabilities as hospital-based radiology reading stations, and formal radiologist read is necessary.
[2025-05-01 01:25] LABS: Base Excess 1 (-3-3); HCO3 25 mEq/L (20-26); Inspired Oxygen, FIO2 21 %; O2 Saturation 100 % (91-98); PCO2 38 mmHg (32.0-48.0); PO2 148 mmHg (83-108); pH, Arterial 7.43 (7.35-7.45)
[2025-05-01 01:26] LABS: Allen Test Performed/OK; Puncture Site Right Radial
[2025-05-01] MEDS: levETIRAcetam INJ 100 MG/ML VIAL 5ML 2000 MG IVP (01:30)
[2025-05-01] MEDS: MIDAZOLAM/NS 100 MG IVPB 100 MG/100 ML BAG IV (02:00)
[2025-05-01 03:08] LABS: Lactate (Lactic Acid) 2.0 mMol/L (0.4-2.0)
[2025-05-01] MEDS: PROPOFOL 1,000 MG IVPB 1,000 MG/100 ML VIAL 30.633 MG IV ×2 (03:23→06:39)
[2025-05-01 05:09] LABS: Lactate (Lactic Acid) 1.7 mMol/L (0.4-2.0)
[2025-05-01 05:13] LABS: Basophils # (Auto) 0.0 Thou/mm3 (0.0-0.2); Basophils % (Auto) 0 % (0-2.5); Eosinophils # (Auto) 0.0 Thou/mm3 (0.0-0.5); Eosinophils % (Auto) 0 % (0-10); Hematocrit 36.3 % (41.0-53.0); Hemoglobin 12.5 g/dL (13.5-16.0); Immature Granulocytes Auto 0.03 Thou/mm3 (0.00-0.00); Lymphocytes # (Auto) 0.9 Thou/mm3 (1.0-4.8); Lymphocytes % (Auto) 10 % (10-50); Mean Corpuscular HGB Conc 34.4 g/dl (31.0-37.0); Mean Corpuscular Hemoglobin 30.2 pg (25.0-35.0); Mean Corpuscular Volume 88 fL (80-100); Monocytes # (Auto) 0.3 Thou/mm3 (0.0-0.8); Monocytes % (Auto) 4 % (0-12); Neutrophils # (Auto) 7.2 Thou/mm3 (1.8-7.7); Neutrophils % (Auto) 86 % (37-80); Nucleated Red Blood Cell # 0.00 Thou/mm3 (0.00-0.00); Nucleated Red Blood Cell % 0 /100 WBC (0); Platelet Count 163 Thou/mm3 (140-440); RDW Standard Deviation 43.7 fL (35.1-43.9); Red Blood Count 4.14 Miln/mm3 (4.50-5.90); White Blood Count 8.4 Thou/mm3 (3.8-10.6)
[2025-05-01 06:02] LABS: Anion Gap 12 (7-16); BUN/Creatinine Ratio 19 Ratio (12-20); Blood Urea Nitrogen 15 mg/dL (9-23); Carbon Dioxide 22.2 mMol/L (20.0-31.0); Chloride 105 mMol/L (98-107); Creatinine (Component) 0.8 mg/dL (0.6-1.3); Estimated Creatinine Clearance 180.6 mL/min (>60); Potassium 4.2 mMol/L (3.4-5.1); Sodium 139 mMol/L (136-145); eGFR > 60 See Note
[2025-05-01 06:03] LABS: Albumin, Serum 3.9 gm/dL (3.5-5.0); Calcium 8.4 mg/dL (8.3-10.6); Calcium (Corrected) 8.5 mg/dL (8.5-10.1); Cardiac Risk Estimate 3.5 RATIO (4.0-6.7); Cholesterol 128 mg/dL (132-200); HDL Cholesterol 37 mg/dL (40-60); LDL Cholesterol,Calculated 65 mg/dL (0-130); Magnesium 2.0 mg/dL (1.6-2.6); Osmolality,Calculated 295 (275-295); Phosphorous 2.5 mg/dL (2.4-5.1); Triglycerides 131 mg/dL (30-150)
[2025-05-01 06:05] LABS: Glucose 407 mg/dL (74-106)
--- NOTE | 2025-05-01 07:28 | EVENTNT_ITS ---
Documentation for date of: 05/01/25 Event Note Event Note: 04/30/2025 - 05/01/2025 1904 : received call from ED Dr Garcia. Per ED, Dr Lynn wanted ICU night team to admit patient to ICU, as patient already intubated. Concern brought up re: pending Head CT. ED physician said Dr Lynn aware. Patient was admitted to ICU by night resident for further care and management. 2029 : Head CT showed LT frontal meningioma with surrounding edema and anterior horn midline shift. 2044 : Transfer process initiated. Paperwork signed by family. Mother informed. - - [facility] rejected. [facility] potential. 2129 : Receievd call from [facility] dental scheduling coordinator, provided patient informa tion. Pending call back from Neurosurgery. started patient on Dexamethasone emperically. 2319 : Received call from it coordinator at [facility] - Neurosurgery declines as NO urgent/emergent Neurosurgical intervention required at this time. [facility] willing to accept patient under neuro crit care potentially. 0000 : Provided patient information to Neuro Crit Care at [facility], pending call back. Ordered MR Brain w/wo con as requested. Requested TELE Neuro in meantime, waiting for call. 0040 : Tele Neuro consult, recommendations to give additonal 2g keppra because of BMI 53. MR Brain already ordered but no tech overnight. Tele Neuro strongly recommended patient be at a teritiary facility with Neuro surgery readily available. High risk of acute deterioration on status. Q1H neuro checks. Ty chin. 0115 : Personally spoke 1:1 to Neurosurgery PA, expressed urgency for transfer as pateint at high risk. Declined neurosurgery admission as no intervention indicated, slow growing tumor. Continue management. Want continuous EEG. In house Neuro consulted, pending recs. Will try to get EEG continuous jamaal, follow up with Neuro recs. 0215 : [facility] neuro crit care service ACCEPTED TRANSFER. Patient to be transferred to their service in the morning (possible transfer between 7-9am). Will continue management for now. 0400 : All questions and concerns addressed. Transfer process in all set in order. Plan of care discussed with attending Dr Calloway, - Curtis Velasquez M.D. PGY3 Disclaimer: Minor errors in printed circuit layout taper may be present as this note was dictated using voice recognition software.
--- NOTE | 2025-05-01 07:33 | PC.CM ---
Addendum entered by Aakash Bautista RN 05/01/25 16:43: 1615- Spoke with MARIAA Metz at [facility] for prior auth for inpatient transfer, she instructed me to print a prior authorization request from their website that must be completed by MD and faxed to the number at the top of the form, indicate urgent transfer, informed me that urgent transfers can take up to 72 hours to process. Updated BRAYAN Hill in ICU and attending residents in ICU. form completed, please follow up. with [facility] next day to ensure form has been received. Also called Anh, study manager at [facility] at [phone] and left message with her to help expedite prior auth is possible. Addendum entered by Aakash Bautista RN 05/01/25 11:12: 1110- Received call from Radha at [facility], , patient is not a member with them since Nov, 2024. Will contact social professionals to help identify insurance or begin process for medical. Addendum entered by Aakash Bautista RN 05/01/25 08:50: 0845- Call to Radha at [facility], to initiate prior auth for transfer, left voicemail on secure VM with my contact information and the reason for my call, will wait to hear from her and call again if I don't receive a response in the next hour. Addendum entered by Aakash Bautista RN 05/01/25 08:07: 0805-Received call from [facility] TC MARIAA White, per Dr. Manzano we do not need to do the MRI at [facility] as they do require stealth protocol so they will complete the MRI once patient is received at their hospital. Notified BRAYAN Hill in ICU. Addendum entered by Aakash Bautista RN 05/01/25 07:48: 0735- Call to [facility] transfer center, spoke to MARIAA White, informed her that we are not able to do MRI with Stealth Protocol, she will inquire with her neurosurgery team if they would like for us to complete the MRI without Stealth and call us back to let us know if we are to proceed. Original Note: 719- Call to BRAYAN Hill in ICU, informed him of the need for MRI screening form to be completed, he will speak to bedside RN to ensure completion.
[2025-05-01] MEDS: cefTRIAXone/D5w 1gm IV premix 1 GM/50 ML BAG IV (08:03)
[2025-05-01] MEDS: INSULIN LISPRO (AdmeLOG) 1 UNIT/0.01 ML UNIT SC ×4 (08:04→22:12)
[2025-05-01] MEDS: INSULIN DEGLUDEC 5 UNIT/0.05 ML (PER 5 UNITS) 10 UNIT SC ×3 (08:07→18:20)
[2025-05-01] MEDS: DEXAMETHASONE SOD PHOS INJ 4 MG/ML VIAL IVP ×2 (08:07→20:30)
[2025-05-01 10:10] LABS: Glucose Estimated Average 240 mg/dL (80-131); Hemoglobin A1C 10.0 % Hgb (4.8-6.0)
[2025-05-01] MEDS: PROPOFOL 1,000 MG IVPB 1,000 MG/100 ML VIAL 20.256 MG IV (10:55)
--- NOTE | 2025-05-01 10:55 | ESPR_ITS ---
<Statement entered by Joseph Lynn MD - 05/02/25 07:50> TOTAL CC TIME: 45 MIN I saw and evaluated the patient. I reviewed the resident?s note and agree with findings and plan as documented in the resident?s note. Upon my evaluation, this patient had a high probability of imminent or life- threatening deterioration due to brain mass/tumor with sight midline shift and seizures, and poorly controlled undiagnosed T2DM, which required my direct attention, intervention, and personal management. This time is exclusive of time spent on procedures, which are documented separately if performed. cont 29/01 EEG - await neuro interp per neuro decadron reduced wean sedation and extubate tomorrow if has not been transferred by then cont anti-sz meds may require insulin gtt start TFs informed family <Statement entered by Herve Sanders MD - 05/01/25 18:15> This patient is a 45-year-old male with morbid obesity BMI 53.8, no known medical history presented to the ER with 2 witnessed seizures. Patient never had seizure episode in the past. Patient's mother brought the patient to the ER. He was altered in postictal phase with GCS of 5 therefore was intubated and mechanically ventilated.. He was given 3 g of Keppra loading dose for seizures. Patient was placed on propofol and Versed with RASS goal of -3. He was also found to have blood sugars over 300.Initial lactic acid was 15. Urinalysis showed proteinuria and glucosuria. CT abdomen showed colonic diverticulosis but no signs of ischemic bowel. Head CT revealed 32 x 30 mm calcified tumor mass left frontal with marked surrounding edema consistent with meningioma. Overnight transfer center was contacted for transfer to neurosurgical unit where patient can be evaluated for possible surgery. This morning, patient's sedations was weaned off to assess neurological status and patient was able to move his extremities and was able to understand commands. Neurology recommended to continue Keppra 1000 mg twice daily and continue dexamethasone 4 mg IV twice daily. Currently insurance authorization is pending for transfer to [facility]. Will continue with mechanical ventilation with SIMV mode and if patient will be delayed by tomorrow for transfer will likely perform extubation trial as patient is neurologically improved and able to protect airways. Seizure precautions as needed. For blood sugars, we have been optimizing long-acting insulin and sliding scale. Currently we gave 30 units insulin with 10 units every 6 hourly with add on sliding scale to maintain blood sugars. Will continue with Rocephin 1 g for community-acquired pneumonia and follow-up blood cultures. All labs and orders were reviewed. I discussed and supervised with the network internship physician who took care of this patient. I personally saw and examined the patient. I agree with most of the assessment and plan. Disclaimer: Despite multiple revisions, due to the dictation software being used, the document bellow may not be free of grammatical errors including phonetic/typographic errors. However, this does not deter from our commitment to providing health care in the patient's best interest in mind. Plan of care discussed with attending Physician Dr. Leah Sanders MD PGY-3 Documentation for date of: 05/01/25 Subjective Subjective Interval history: Mr. Aldrich is a 45-year-old male with medical issues of obesity BMI 53.8, no known medical conditions, who was brought into the ED from home by ambulance after seizure-like activity at home. Most of the history obtained from ED documentation, as per mother at bedside, patient has never had this seizure-like symptoms in the past. Paramedics reported that mother was present at the scene and witnessed hearing strange noises from the patient's room. When paramedics arrived at scene patient was in a postictal state, GCS of 5 and snoring. After about 5-10 minutes patient became combative agitated followed by a tonic-clonic seizure lasting about 1 minute. Fingerstick blood glucose check en route to the hospital was 315. In the ED, vitals showed Tachycardia 128-130 bpm, tachypnea 21?24, blood pressure 153/83., Temp within normal limits. Initial blood work was remarkable for WBC 19.6 with lymphocyte and neutrophil predominance, chemistry panel showed blood glucose 352, hyperphosphatemia 5.5. ABG showed pH 7.28, CO2 48 and bicarb 19.9 on CHEM panel. Lactic acid 15 at 7 PM lab draw. Urinalysis remarkable for 2+ protein, 4+ glucose, 1+ blood, 15 RBC, 10 epithelial cells and 9 hyaline cast, 9 WBC and rare bacteria. On imaging, chest x-ray remarkable for mild perihilar congestion, no consolidations noted. CT abdomen pelvis showed colonic diverticulosis, thickened gallbladder, but no signs of ischemic bowel. Head CT ordered by ED, but not taken. Patient was given 2 L bolus in the ED, in addition to 1 g loading dose of Keppra. He was also started on propofol and fentanyl post intubation. He was also given loading dose 2 g Rocephin for possible UTI. ED attending Dr. Garcia called night hospitalist team at 1904 on 04/30/2025. Per ED physician, he contacted annual greenhouse manager Dr. Lynn and provided this patient information. Per Dr Garcia- Dr Lynn recommended admission to ICU. Patient was admitted for new onset seizures s/p intubation. Neurology consulted for further recommendations. Pending Head CT at this time of admission. Interval History: 05/01/2025: This morning patient continued to be sedated and intubated from overnight. Patient's Head CT was done and was read as having a 32 x 30 mm calcified tumor mass left frontal with marked surrounding edema, most consistent with meningioma. ICU team overnight was in contact with [facility] who relayed that they will not need an MRI due to lack of 'Stealth Protocol' here at [facility], pending insurance processing for transfer. Patient is planned to be weaned off of sedation with plans to extubate due to transfer process seeming like it will not occur soon or today, pending insurance processing. Patient currently has a RASS score of -5 with a RASS goal of 0 for mentation assessment followed by pressure support followed extubation attempt, as appropriate. Patient's vitals are stable. Patient had a loading dose of keppra given and has been scheduled keppra 1000 mg bid. Patient is continuing dexamethasone, but decreased to 4 mg IV BID. Will continue to follow up with transfer nurse. Exam Vital Signs Temp Pulse Resp BP Pulse Ox O2 Del Method FiO2 97.1 F 93 22 H 107/62 97 Mechanical Ventilation 40 05/01/25 08:00 05/01/25 10:34 05/01/25 09:15 05/01/25 09:15 05/01/25 10:34 05/01/25 08:00 05/01/25 10:34 Narrative Exam General: Sedated, Intubated Skin: Small LT buttock abscess/folliculitis, draining purulent discharge HENT: NCAT, not icteric. External ears normal. No rhinorrhea. Moist mucous membranes Cardiovascular: Regular rate and rhythm, no murmur, +S1/S2. Respiratory: Lungs CTAB (limited by body habitus) GI: Soft, nontender, non-distended. No guarding or rebound tenderness. : No suprapubic tenderness. Extremities: no edema, no cyanosis, no clubbing. Extremity pulses present Neuro: Sedated; RASS -5; Not withdrawing to pain in any extremities. L pupil minimally reactive to light, ~2.5mm; R pupil reactive to light; Babinkski reflex absent bilaterally Psychiatric: Not able to assess, sedated Objective Labs 05/01/25 04:48 05/01/25 04:48 Labs: Laboratory Results - last 24 hr 04/30/25 04/30/25 04/30/25 16:55 17:29 18:19 WBC 19.6 H RBC 5.04 Hgb 15.2 Hct 46.2 MCV 92 MCH 30.2 MCHC 32.9 RDW Std Deviation 45.4 H Plt Count 284 Neut % (Auto) 41 Lymph % (Auto) 47 Reagan % (Auto) 9 Eos % (Auto) 2 Baso % (Auto) 0 Neut # (Auto) 8.1 H Lymph # (Auto) 9.2 H Reagan # (Auto) 1.7 H Eos # (Auto) 0.3 Baso # (Auto) 0.1 Immature Gran # (Auto) 0.23 H Absolute Nucleated RBC 0.00 Immature Gran % 1 H Nucleated RBC % 0 Smear Path Review Sent to Pathologist PT 11.4 INR 1.1 Puncture Site Right Brachial ABG pH 7.28 L ABG pCO2 48 ABG pO2 191 H ABG HCO3 23 ABG O2 Saturation 100 H ABG Base Excess -4 L FiO2 21 Sodium 143 Potassium 3.7 Chloride 101 Carbon Dioxide 19.9 L Anion Gap 22 H BUN 13 Creatinine 1.0 Estim Creat Clear Calc 144.5 eGFR > 60 BUN/Creatinine Ratio [address] Glu mg/dL Hemoglobin A1c Calculated Osmolality 299 H Lactic Acid 15.0 H* Calcium 9.1 Corrected Calcium 9.1 Phosphorus 5.5 H Magnesium 2.2 Total Bilirubin 0.5 AST 30 ALT 39 Alkaline Phosphatase 113 Total Creatine Kinase 57 Total Protein 8.3 H Albumin 4.6 Globulin 3.7 H Albumin/Globulin Ratio 1.2 Triglycerides Cholesterol LDL Cholesterol, Calc HDL Cholesterol Cholesterol/HDL Ratio Ur Collection Type Clean Catch Urine Color Lt-Yellow Urine Clarity Turbid A Urine pH 6.0 Ur Specific Yale 1.025 Urine Protein 2+ A Urine Glucose (UA) 4+ A Urine Ketones Trace Urine Blood 1+ A Urine Nitrite Negative Urine Bilirubin Negative Urine Urobilinogen (Auto) Negative Ur Leukocyte Esterase Negative Urine RBC 15 H Urine WBC 9 H Ur Squamous Epith Cells 10 H Urine Bacteria Rare Hyaline Casts 9 H 04/30/25 04/30/25 05/01/25 21:09 22:37 01:15 WBC RBC Hgb Hct MCV MCH MCHC RDW Std Deviation Plt Count Neut % (Auto) Lymph % (Auto) Reagan % (Auto) Eos % (Auto) Baso % (Auto) Neut # (Auto) Lymph # (Auto) Reagan # (Auto) Eos # (Auto) Baso # (Auto) Immature Gran # (Auto) Absolute Nucleated RBC Immature Gran % Nucleated RBC % Smear Path Review PT INR Puncture Site Right Radial Right Radial ABG pH 7.31 L 7.43 D ABG pCO2 50 H 38 D ABG pO2 161 H D 148 H ABG HCO3 25 25 ABG O2 Saturation 100 H 100 H ABG Base Excess -2 1 FiO2 20 21 Sodium Potassium Chloride Carbon Dioxide Anion Gap BUN Creatinine Estim Creat Clear Calc eGFR BUN/Creatinine Ratio Glucose Estimated Ave Glu mg/dL Hemoglobin A1c Calculated Osmolality Lactic Acid 1.6 Calcium Corrected Calcium Phosphorus Magnesium Total Bilirubin AST ALT Alkaline Phosphatase Total Creatine Kinase Total Protein Albumin Globulin Albumin/Globulin Ratio Triglycerides Cholesterol LDL Cholesterol, Calc HDL Cholesterol Cholesterol/HDL Ratio Ur Collection Type Urine Color Urine Clarity Urine pH Ur Specific Yale Urine Protein Urine Glucose (UA) Urine Ketones Urine Blood Urine Nitrite Urine Bilirubin Urine Urobilinogen (Auto) Ur Leukocyte Esterase Urine RBC Urine WBC Ur Squamous Epith Cells Urine Bacteria Hyaline Casts 05/01/25 05/01/25 05/01/25 02:42 04:48 05:48 WBC 8.4 D RBC 4.14 L Hgb 12.5 L D Hct 36.3 L MCV 88 MCH 30.2 MCHC 34.4 RDW Std Deviation 43.7 Plt Count 163 D Neut % (Auto) 86 H Lymph % (Auto) 10 Reagan % (Auto) 4 Eos % (Auto) 0 Baso % (Auto) 0 Neut # (Auto) 7.2 Lymph # (Auto) 0.9 L Reagan # (Auto) 0.3 Eos # (Auto) 0.0 Baso # (Auto) 0.0 Immature Gran # (Auto) 0.03 H Absolute Nucleated RBC 0.00 Immature Gran % 0 Nucleated RBC % 0 Smear Path Review PT INR Puncture Site ABG pH ABG pCO2 ABG pO2 ABG HCO3 ABG O2 Saturation ABG Base Excess FiO2 Sodium 139 Potassium 4.2 D Chloride 105 Carbon Dioxide 22.2 Anion Gap 12 BUN 15 Creatinine 0.8 Estim Creat Clear Calc 180.6 eGFR > 60 BUN/Creatinine Ratio 19 Glucose 407 H* D Estimated Ave Glu mg/dL 240 H Hemoglobin A1c 10.0 H Calculated Osmolality 295 Lactic Acid 2.0 1.7 Calcium 8.4 Corrected Calcium 8.5 Phosphorus 2.5 Magnesium 2.0 Total Bilirubin AST ALT Alkaline Phosphatase Total Creatine Kinase Total Protein Albumin 3.9 D Globulin Albumin/Globulin Ratio Triglycerides 131 Cholesterol 128 L LDL Cholesterol, Calc 65 HDL Cholesterol 37 L Cholesterol/HDL Ratio 3.5 L Ur Collection Type Urine Color Urine Clarity Urine pH Ur Specific Yale Urine Protein Urine Glucose (UA) Urine Ketones Urine Blood Urine Nitrite Urine Bilirubin Urine Urobilinogen (Auto) Ur Leukocyte Esterase Urine RBC Urine WBC Ur Squamous Epith Cells Urine Bacteria Hyaline Casts ABG Interpretation ABG results: 04/30/25 04/30/25 05/01/25 18:19 21:09 01:15 ABG pH 7.28 L 7.31 L 7.43 D ABG pCO2 48 50 H 38 D ABG pO2 191 H 161 H D 148 H ABG HCO3 23 25 25 ABG O2 Saturation 100 H 100 H 100 H ABG Base Excess -4 L -2 1 Quality Measures Quality Measures VTE prophylaxis Assessment & Plan Assessment Current Active Medications: Generic Name Dose Route Start Last Admin Trade Name Maynor PRN Reason Stop Dose Admin Dexamethasone Sodium Phosphate 4 mg 05/01/25 08:00 05/01/25 08:07 Dexamethasone Sod Phos Inj 4 Mg/Ml Vial IVP 05/31/25 07:59 4 mg Q8HR CRISTIANA Administration Protocol Dextrose 25 ml 05/01/25 07:31 Dextrose 50%-Water Inj 50 Ml Syringe IV 05/31/25 07:30 Q15MIN PRN BG 50-70 responsive npo pt Dextrose 50 ml 05/01/25 07:31 Dextrose 50%-Water Inj 50 Ml Syringe IV 05/31/25 07:30 Q15MIN PRN BG <50 OR BG <70 & pt unresponsive Enoxaparin Sodium 40 mg 04/30/25 21:00 04/30/25 21:50 Enoxaparin Sod Inj 40 Mg/0.4 Ml Syringe SC 05/14/25 20:59 40 mg QPM CRISTIANA Administration Glucagon 1 mg 05/01/25 07:31 Glucagon Inj 1 Mg Vial IM Q15MIN PRN BG <70, and no IV access Acetaminophen 1,000 mg in 100 mls @ 250 mls/hr 04/30/25 19:13 Ofirmev Inj IV 05/01/25 12:23 Q6HR PRN fever >99.9 Ceftriaxone Sodium/Dextrose 1 gm in 50 mls @ 100 mls/hr 05/01/25 09:00 05/01/25 08:03 Rocephin/D5w 1gm Iv Premix IV 05/07/25 08:59 100 mls/hr QDAY CRISTIANA Administration Midazolam HCl 100 mg in 100 mls @ 1 mls/hr 04/30/25 19:49 05/01/25 09:30 Versed Pf Inj In Ns Premix IV 05/05/25 19:48 0 mg/hr On Hold: 05/01/25 09:30 .Q24H PRN 0 mls/hr PER PROTOCOL Titration Protocol 1 MG/HR Propofol 1,000 mg in 100 mls @ 5.064 mls/hr 05/01/25 09:30 Diprivan Ivpb IV 05/30/25 17:13 .[id number] PRN PER PROTOCOL Protocol 5 MCG/KG/MIN Insulin Degludec 20 unit 05/02/25 09:00 Insulin Degludec 5 Unit/0.05 Ml (Per 5 Units) SC 06/01/25 08:59 QDAY [facility] Insulin Human Lispro 0 unit 05/01/25 10:21 Insulin Lispro (Admelog) 1 Unit/0.01 Ml Unit SC 05/31/25 09:59 Q4HR [facility] Protocol Ondansetron HCl 4 mg 04/30/25 19:10 Ondansetron Inj 2 Mg/Ml Inj 2 Ml IVP 05/30/25 19:09 Q6H PRN NAUSEA OR VOMITING Protocol Plan Patient is a 45 year old male admitted for seizures, new onset s/p intubation for resp support. NEURO Seizure, new onset 2/2 Left Brain Frontal lobe tumor mass Acute encephalopathy On sedation Dx: - Per mother and paramedics, patient had new onset seizure-like activity at home and was brought to the ED - Patient was intubated in the ED to protect airway - Received call for admission @ 1904. Per ED physician, sign out given to Dr. Lynn who recommended admission to ICU. - CT Head showed 32 x 30 mm calcified tumor mass left frontal convexity with marked surrounding edema, most consistent with meningioma; Shift of the frontal horns to the right at least 5 mm - Process in place to transfer patient for urgent neurosurgical intervention to [facility], pending insurance authorization. Rx: - weaning off sedation as tolerated - EEG extended monitoring on going - Scheduled Keppra 1000 mg IV BID - Dexamethasone changed to 4 mg IV BID - In-house neurology consulted for further evaluation, appreciate recs RRx: - He was given 2 L IV fluid bolus in the ED along with a 1g x 1 and 2g x 1 loading dose of Keppra - Patient was also started on fentanyl and propofol, changed to propofol and Versed for sedation after intubation. [facility] No active problems PULM AHRF - Intubated on mech vent Dx: - Intubated/Sedated in the ED to protect airway given declining mental status, GCS 3 - Most recent ABG showed pH 7.43, pco2 38, po2 148, bicarb 25 - oxygen saturation at 97% Rx: - Vent Mode currently SIMV with tidal volume 550, RR 7, peep 5, pressure support of 6 - Weaning off sedation; if mentation allows, will transition to pressure support with plan for extubation - Titrate down on sedatives, will reevaluate with q1H neurochecks - Upper extremity restraints in place for tube/line pulling prevention GI/Hep Colonic diverticulosis GB thickening/calcification Dx: - CT abdomen pelvis: colonic diverticulosis, thickened gallbladder, but no signs of ischemic bowel. Rx: - No active symptoms at this time RENAL Proteinuria Likely due to uncontrolled diabetes Dx: -UA showed 2+ protein, 4+ glucose -UOP last 24 hours 1310 ml Rx: -Will need outpatient f/u for diabetes control/optimization Anion gap metabolic acidosis, RESOLVED Hyperosmolar hyperNatremia, RESOLVED Dx: - AG = 22, LA = 15 --> Gap resolved, lactic acid 1.7 - CT abdomen pelvis does no show ischemic bowel. - Corrected sodium= 147 -> 145 Rx: - Patient was given 1 L LR bolus + 1 L NS bolus in the ED - q4H Renal Panel checks. Will give D5 or 1/2 NS if Na continues to worsen ENDO Uncontrolled T2DM Dx: -Patint present with blood sugars of 352 -> 407 -05/01 A1c 10.0% -Patient currently NPO with plans to start tube feeds, keeping in mind patient is on dexamethasone Rx: -Started 20 units degludec SC q day -Started Sliding Scale Insulin step 3 -Bedside glucose checks q4hr -hypoglycemic protocol in place -Consulted Truck Driver Helper for tube feeds HLD Dx: -No previous medical history or medication usage -Lipid panel LDL 128, HDL 37 Rx: -Will start statin when able to tolerate PO -Recommend f/u outpatient Morbid Obesity Dx: - BMI 53.8, chronic - Patient is independent at home, able to carry ADLs without assistance - As per mother at bedside, no sudden weight gain or loss HEME/ONC Anemia 2/2 hemodilution Dx: -hgb 15.2 -> 12.5 s/p 2 L fluids -no signs/symptoms of active bleeding Rx: -continue to trend hgb, monitor for s/s of bleeding ID Community Acquired Pneumonia Dx: - CT AP showed Bibasilar Pneumonia - ED gave loading dose 2 g Rocephin Rx: - Continue Rocephin 1 g daily - Blood cultures, ET Tube culture, MRSA culture pending ICU Health maintenance: Dispo: Admit to ICU for new onset seizure s/p intubation Diet: NPO (planning to start tube feeds, clinical neuropsychologist consulted) DVT ppx: Enoxaparin 40mg SC daily GI ppx: not indicated Mechanical ventilation: SIMV; weaning sedation for extubation Sedation: Propofol IV lines: 2 pIV Milton: Yes Central line: No Arterial line: No Code status: FULL CODE Patient plan of care was discussed with the attending physician, Dr. Lynn & senior resident Dr. Marilyn Tolbert MD PGY-1
--- NOTE | 2025-05-01 10:58 | PC.SS ---
MOLD YARD WORKER conducted bedside contact with the patient conduct initial assessment and to discuss discharge planning.? Patient currently admitted to ICU on mechanical ventilation.? At bedside with patient was mother, Jayda Aldrich .? Patient?s mother provided information for assessment.? Patient resides at home with parents.? 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 Patient does not utilize any form of DME to assist with ambulation.? Patient does not utilize home oxygen.? Patient possesses the ability to complete ADL?s independently.? Patient?s medical surrogate decision maker is mother, Jayda Aldrich.? Patient?s PCP is Dr. Camarena [facility].? Patient does not participate with dialysis.? Patient does not possess any specialty providers.? Patient utilizes [facility] for medication services.? Plan is for the patient to return home at the time of discharge.? Family will provide transportation on behalf of the patient.? No further discharge needs identified by the patient.? No further intervention required at this time, social worker psychiatric will be available to address any further concerns.? Next of Kin: Jayda Funginez D/C Plan: Home
[2025-05-01] MEDS: PROPOFOL 1,000 MG IVPB 1,000 MG/100 ML VIAL 30.384 MG IV (13:39)
[2025-05-01 14:11] LABS: Lactate (Lactic Acid) 1.5 mMol/L (0.4-2.0)
--- NOTE | 2025-05-01 14:37 | PD.RESPRO ---
Documentation for date of: 05/01/25 Subjective Subjective Interval history: Patient examined in bedside in ICU. Sedated and intubated. Vitals are stable, labs show downtrending WBC to 8, glucose 407. TAG 131, LDL 65, chol 128, HDL 37, A1c 10.0. Undergoing extended EEG monitoring. MRI w/wout contrast is pending. Concern for slight midline shift and noticeable edema on CT head. Continue Keppra 1000mg BID and dexamethasone 4mg BID. Transfer for neurosurgery is pending. Continue to optimize blood sugars, currently on 30 units insulin with 10 units every 6 hourly plus SSI. Exam Vital Signs Temp Pulse Resp BP Pulse Ox O2 Del Method FiO2 97.1 F 92 16 119/73 97 Mechanical Ventilation 40 05/01/25 08:00 05/01/25 13:15 05/01/25 11:15 05/01/25 11:15 05/01/25 13:15 05/01/25 08:00 05/01/25 13:15 Narrative Exam General: Sedated, Intubated, continuous EEG Skin: Small LT buttock abscess/folliculitis, draining purulent discharge HENT: NCAT, not icteric. External ears normal. No rhinorrhea. Moist mucous membranes Cardiovascular: Regular rate and rhythm, no murmur, +S1/S2. Respiratory: Lungs CTAB (limited by body habitus) GI: Soft, nontender, non-distended. No guarding or rebound tenderness. : No suprapubic tenderness. Extremities: no edema, no cyanosis, no clubbing. Extremity pulses present Neuro: Sedated; RASS -5; Not withdrawing to pain in any extremities. L pupil minimally reactive to light, ~2.5mm; R pupil reactive to light; Babinkski reflex absent bilaterally Psychiatric: Not able to assess, sedated Objective Labs 05/02/25 04:35 05/02/25 19:50 Labs: Laboratory Results - last 24 hr 04/30/25 04/30/25 04/30/25 16:55 17:29 18:19 WBC 19.6 H RBC 5.04 Hgb 15.2 Hct 46.2 MCV 92 MCH 30.2 MCHC 32.9 RDW Std Deviation 45.4 H Plt Count 284 Neut % (Auto) 41 Lymph % (Auto) 47 Door % (Auto) 9 Eos % (Auto) 2 Baso % (Auto) 0 Neut # (Auto) 8.1 H Lymph # (Auto) 9.2 H Door # (Auto) 1.7 H Eos # (Auto) 0.3 Baso # (Auto) 0.1 Immature Gran # (Auto) 0.23 H Absolute Nucleated RBC 0.00 Immature Gran % 1 H Nucleated RBC % 0 Smear Path Review Sent to Pathologist PT 11.4 INR 1.1 Puncture Site Right Brachial ABG pH 7.28 L ABG pCO2 48 ABG pO2 191 H ABG HCO3 23 ABG O2 Saturation 100 H ABG Base Excess -4 L FiO2 21 Sodium 143 Potassium 3.7 Chloride 101 Carbon Dioxide 19.9 L Anion Gap 22 H BUN 13 Creatinine 1.0 Estim Creat Clear Calc 144.5 eGFR > 60 BUN/Creatinine Ratio [address] Glu mg/dL Hemoglobin A1c Calculated Osmolality 299 H Lactic Acid 15.0 H* Calcium 9.1 Corrected Calcium 9.1 Phosphorus 5.5 H Magnesium 2.2 Total Bilirubin 0.5 AST 30 ALT 39 Alkaline Phosphatase 113 Total Creatine Kinase 57 Total Protein 8.3 H Albumin 4.6 Globulin 3.7 H Albumin/Globulin Ratio 1.2 Triglycerides Cholesterol LDL Cholesterol, Calc HDL Cholesterol Cholesterol/HDL Ratio Ur Collection Type Clean Catch Urine Color Lt-Yellow Urine Clarity Turbid A Urine pH 6.0 Ur Specific [place] 1.025 Urine Protein 2+ A Urine Glucose (UA) 4+ A Urine Ketones Trace Urine Blood 1+ A Urine Nitrite Negative Urine Bilirubin Negative Urine Urobilinogen (Auto) Negative Ur Leukocyte Esterase Negative Urine RBC 15 H Urine WBC 9 H Ur Squamous Epith Cells 10 H Urine Bacteria Rare Hyaline Casts 9 H 04/30/25 04/30/25 05/01/25 21:09 22:37 01:15 WBC RBC Hgb Hct MCV MCH MCHC RDW Std Deviation Plt Count Neut % (Auto) Lymph % (Auto) Door % (Auto) Eos % (Auto) Baso % (Auto) Neut # (Auto) Lymph # (Auto) Door # (Auto) Eos # (Auto) Baso # (Auto) Immature Gran # (Auto) Absolute Nucleated RBC Immature Gran % Nucleated RBC % Smear Path Review PT INR Puncture Site Right Radial Right Radial ABG pH 7.31 L 7.43 D ABG pCO2 50 H 38 D ABG pO2 161 H D 148 H ABG HCO3 25 25 ABG O2 Saturation 100 H 100 H ABG Base Excess -2 1 FiO2 20 21 Sodium Potassium Chloride Carbon Dioxide Anion Gap BUN Creatinine Estim Creat Clear Calc eGFR BUN/Creatinine Ratio Glucose Estimated Ave Glu mg/dL Hemoglobin A1c Calculated Osmolality Lactic Acid 1.6 Calcium Corrected Calcium Phosphorus Magnesium Total Bilirubin AST ALT Alkaline Phosphatase Total Creatine Kinase Total Protein Albumin Globulin Albumin/Globulin Ratio Triglycerides Cholesterol LDL Cholesterol, Calc HDL Cholesterol Cholesterol/HDL Ratio Ur Collection Type Urine Color Urine Clarity Urine pH Ur Specific Wheeling Urine Protein Urine Glucose (UA) Urine Ketones Urine Blood Urine Nitrite Urine Bilirubin Urine Urobilinogen (Auto) Ur Leukocyte Esterase Urine RBC Urine WBC Ur Squamous Epith Cells Urine Bacteria Hyaline Casts 05/01/25 05/01/25 05/01/25 02:42 04:48 05:48 WBC 8.4 D RBC 4.14 L Hgb 12.5 L D Hct 36.3 L MCV 88 MCH 30.2 MCHC 34.4 RDW Std Deviation 43.7 Plt Count 163 D Neut % (Auto) 86 H Lymph % (Auto) 10 Door % (Auto) 4 Eos % (Auto) 0 Baso % (Auto) 0 Neut # (Auto) 7.2 Lymph # (Auto) 0.9 L Door # (Auto) 0.3 Eos # (Auto) 0.0 Baso # (Auto) 0.0 Immature Gran # (Auto) 0.03 H Absolute Nucleated RBC 0.00 Immature Gran % 0 Nucleated RBC % 0 Smear Path Review PT INR Puncture Site ABG pH ABG pCO2 ABG pO2 ABG HCO3 ABG O2 Saturation ABG Base Excess FiO2 Sodium 139 Potassium 4.2 D Chloride 105 Carbon Dioxide 22.2 Anion Gap 12 BUN 15 Creatinine 0.8 Estim Creat Clear Calc 180.6 eGFR > 60 BUN/Creatinine Ratio 19 Glucose 407 H* D Estimated Ave Glu mg/dL 240 H Hemoglobin A1c 10.0 H Calculated Osmolality 295 Lactic Acid 2.0 1.7 Calcium 8.4 Corrected Calcium 8.5 Phosphorus 2.5 Magnesium 2.0 Total Bilirubin AST ALT Alkaline Phosphatase Total Creatine Kinase Total Protein Albumin 3.9 D Globulin Albumin/Globulin Ratio Triglycerides 131 Cholesterol 128 L LDL Cholesterol, Calc 65 HDL Cholesterol 37 L Cholesterol/HDL Ratio 3.5 L Ur Collection Type Urine Color Urine Clarity Urine pH Ur Specific Wheeling Urine Protein Urine Glucose (UA) Urine Ketones Urine Blood Urine Nitrite Urine Bilirubin Urine Urobilinogen (Auto) Ur Leukocyte Esterase Urine RBC Urine WBC Ur Squamous Epith Cells Urine Bacteria Hyaline Casts 05/01/25 14:01 WBC RBC Hgb Hct MCV MCH MCHC RDW Std Deviation Plt Count Neut % (Auto) Lymph % (Auto) Door % (Auto) Eos % (Auto) Baso % (Auto) Neut # (Auto) Lymph # (Auto) Door # (Auto) Eos # (Auto) Baso # (Auto) Immature Gran # (Auto) Absolute Nucleated RBC Immature Gran % Nucleated RBC % Smear Path Review PT INR Puncture Site ABG pH ABG pCO2 ABG pO2 ABG HCO3 ABG O2 Saturation ABG Base Excess FiO2 Sodium Potassium Chloride Carbon Dioxide Anion Gap BUN Creatinine Estim Creat Clear Calc eGFR BUN/Creatinine Ratio Glucose Estimated Ave Glu mg/dL Hemoglobin A1c Calculated Osmolality Lactic Acid 1.5 Calcium Corrected Calcium Phosphorus Magnesium Total Bilirubin AST ALT Alkaline Phosphatase Total Creatine Kinase Total Protein Albumin Globulin Albumin/Globulin Ratio Triglycerides Cholesterol LDL Cholesterol, Calc HDL Cholesterol Cholesterol/HDL Ratio Ur Collection Type Urine Color Urine Clarity Urine pH Ur Specific [place] Urine Protein Urine Glucose (UA) Urine Ketones Urine Blood Urine Nitrite Urine Bilirubin Urine Urobilinogen (Auto) Ur Leukocyte Esterase Urine RBC Urine WBC Ur Squamous Epith Cells Urine Bacteria Hyaline Casts ABG Interpretation ABG results: 04/30/25 04/30/25 05/01/25 18:19 21:09 01:15 ABG pH 7.28 L 7.31 L 7.43 D ABG pCO2 48 50 H 38 D ABG pO2 191 H 161 H D 148 H ABG HCO3 23 25 25 ABG O2 Saturation 100 H 100 H 100 H ABG Base Excess -4 L -2 1 Quality Measures Quality Measures VTE prophylaxis Assessment & Plan Assessment Current Active Medications: Generic Name Dose Route Start Last Admin Trade Name Freq PRN Reason Stop Dose Admin Dexamethasone Sodium Phosphate 4 mg 05/01/25 21:00 Dexamethasone Sod Phos Inj 4 Mg/Ml Vial IVP 05/31/25 20:59 BID CRISTIANA Protocol Dextrose 25 ml 05/01/25 07:31 Dextrose 50%-Water Inj 50 Ml Syringe IV 05/31/25 07:30 Q15MIN PRN BG 50-70 responsive npo pt Dextrose 50 ml 05/01/25 07:31 Dextrose 50%-Water Inj 50 Ml Syringe IV 05/31/25 07:30 Q15MIN PRN BG <50 OR BG <70 & pt unresponsive Enoxaparin Sodium 40 mg 04/30/25 21:00 04/30/25 21:50 Enoxaparin Sod Inj 40 Mg/0.4 Ml Syringe SC 05/14/25 20:59 40 mg QPM CRISTIANA Administration Glucagon 1 mg 05/01/25 07:31 Glucagon Inj 1 Mg Vial IM Q15MIN PRN BG <70, and no IV access Ceftriaxone Sodium/Dextrose 1 gm in 50 mls @ 100 mls/hr 05/01/25 09:00 05/01/25 08:03 Rocephin/D5w 1gm Iv Premix IV 05/07/25 08:59 100 mls/hr QDAY CRISTIANA Administration Midazolam HCl 100 mg in 100 mls @ 1 mls/hr 04/30/25 19:49 05/01/25 09:30 Versed Pf Inj In Ns Premix IV 05/05/25 19:48 0 mg/hr On Hold: 05/01/25 09:30 .Q24H PRN 0 mls/hr PER PROTOCOL Titration Protocol 1 MG/HR Propofol 1,000 mg in 100 mls @ 5.064 mls/hr 05/01/25 09:30 05/01/25 12:00 Diprivan Ivpb IV 05/30/25 17:13 30 mcg/kg/min .[id number] PRN 30.384 mls/hr PER PROTOCOL Titration Protocol 5 MCG/KG/MIN Insulin Degludec 20 unit 05/02/25 09:00 Insulin Degludec 5 Unit/0.05 Ml (Per 5 Units) SC 06/01/25 08:59 QDAY [facility] Insulin Human Lispro 0 unit 05/01/25 10:21 Insulin Lispro (Admelog) 1 Unit/0.01 Ml Unit SC 05/31/25 09:59 Q4HR [facility] Protocol Levetiracetam 1,000 mg 05/01/25 13:20 Levetiracetam Inj 100 Mg/Ml Vial 5ml IVP 05/31/25 13:19 Q12HR [facility] Ondansetron HCl 4 mg 04/30/25 19:10 Ondansetron Inj 2 Mg/Ml Inj 2 Ml IVP 05/30/25 19:09 Q6H PRN NAUSEA OR VOMITING Protocol Plan 45 yr male with PMH of obesity BMI 53 admitted for new onset seizures. In process of transfer for neurosurgery after CT head showed meningioma with significant edema. #New onset seizure #Meningioma Likely seizure onset due to surrounding edema. Resulting in neurologic symptoms. Patient was found by mother after she noticed noises coming from patient's room. Upon arrival by EMS GCS was 5. Witnessed tonic-clonic seizure for about 1 minute. Blood sugar at scene was 315. In ED, heart rate 130s, tachypneic 24, BP 153/83, leukocytosis 19. Patient received loading dose Keppra 3 g. Was intubated unable to protect airway. CT head showed 32 x 30 mm calcified tumor mass most likely identifying as meningioma. TG 131, LDL 65, cholesterol 128, HDL 37, A1c 10.0. Transfter to tertiary care center pending for neurosurgical evaluation. - Undergoing continuous EEG - MRI with without contrast pending - Continue IV Keppra 1000 mg twice daily - Continue IV dexamethasone 4 mg BID -Neurocheck q4hr -seizure precautions # Poorly controlled type 2 diabetes Presented with blood sugar 352, A1c on this admission 10.0. Not on any medications at home. -Started 30 units degludec SC q day -Started Sliding Scale Insulin step 3 -Bedside glucose checks q4hr -hypoglycemic protocol in place -Consulted Billing Analyst for tube feeds AHRF - Intubated on mech vent Colonic diverticulosis GB thickening/calcification Proteinuria Anion gap metabolic acidosis, RESOLVED Hyperosmolar hyperNatremia, RESOLVED HLD Morbid Obesity Anemia 2/2 hemodilution Community Acquired Pneumonia Primary care team to manage above conditions and ongoing care needs. The patient's management plan was discussed with my attending physician Dr. Brandon. Archana Snider, PGY-2 Attending Provider Attestation/Addendum I virtually have seen the patient at the bedside and I agreed with resident's findings, assessment and plan of care. Patient with new onset sz with meningioma with pressure effect and surrounding edema. Continue with keppra and Dexamethasone FU with EEG and MRI brain, transfer to higher level care with NSGical services.
[2025-05-01] MEDS: levETIRAcetam INJ 100 MG/ML VIAL 5ML 1000 MG IVP ×2 (14:48→20:31)
--- NOTE | 2025-05-01 15:08 | PC.SS ---
DIRECTOR OF RADIO SERVICES attempted phone call with patient's mother, Jayda Aldrich. DIRECTOR OF RADIO SERVICES left voicemail requesting that patient's updated insurance cards be brought to the hospital. DIRECTOR OF RADIO SERVICES confimred with financial counselor that patient's [employer] is active.
[2025-05-01] MEDS: PROPOFOL 1,000 MG IVPB 1,000 MG/100 ML VIAL 40.512 MG IV ×3 (16:23→21:26)
--- NOTE | 2025-05-01 16:31 | PC.NURSE ---
Spoke with Virgie from [facility] transfer center. Update on patient condition and vitals given. Per Virgie Still pending insuarance auth.
[2025-05-01] MEDS: ENOXAPARIN SOD INJ 40 MG/0.4 ML SYRINGE SC (20:31)
[2025-05-01] MEDS: INSULIN LISPRO (AdmeLOG) 1 UNIT/0.01 ML UNIT 10 UNIT SC (22:11)
[2025-05-01] MEDS: PROPOFOL 1,000 MG IVPB 1,000 MG/100 ML VIAL 35.448 MG IV (23:30)
[2025-05-02] VITALS (102 sets, daily range): BP systolic 105–164; BP diastolic 61–103; PULSE 68–95; RESP 11–26; TEMP 36.4–37.2; O2SAT 88–100; BMI 53.4
[2025-05-02] MEDS: INSULIN LISPRO (AdmeLOG) 1 UNIT/0.01 ML UNIT SC ×2 (01:35→05:54)
[2025-05-02] MEDS: PROPOFOL 1,000 MG IVPB 1,000 MG/100 ML VIAL 35.448 MG IV (02:39)
[2025-05-02 04:41] LABS: Base Excess 1 (-3-3); HCO3 27 mEq/L (20-26); Inspired Oxygen, FIO2 21 %; O2 Saturation 97 % (91-98); PCO2 45 mmHg (32.0-48.0); PO2 82 mmHg (83-108); pH, Arterial 7.38 (7.35-7.45)
[2025-05-02 04:43] LABS: Allen Test Performed/OK; Puncture Site Left Radial
[2025-05-02 05:24] LABS: Basophils # (Auto) 0.0 Thou/mm3 (0.0-0.2); Basophils % (Auto) 0 % (0-2.5); Eosinophils # (Auto) 0.0 Thou/mm3 (0.0-0.5); Eosinophils % (Auto) 0 % (0-10); Hematocrit 36.3 % (41.0-53.0); Hemoglobin 12.1 g/dL (13.5-16.0); Immature Granulocytes Auto 0.03 Thou/mm3 (0.00-0.00); Lymphocytes # (Auto) 1.0 Thou/mm3 (1.0-4.8); Lymphocytes % (Auto) 11 % (10-50); Mean Corpuscular HGB Conc 33.3 g/dl (31.0-37.0); Mean Corpuscular Hemoglobin 30.0 pg (25.0-35.0); Mean Corpuscular Volume 90 fL (80-100); Monocytes # (Auto) 0.6 Thou/mm3 (0.0-0.8); Monocytes % (Auto) 6 % (0-12); Neutrophils # (Auto) 8.1 Thou/mm3 (1.8-7.7); Neutrophils % (Auto) 83 % (37-80); Nucleated Red Blood Cell # 0.00 Thou/mm3 (0.00-0.00); Nucleated Red Blood Cell % 0 /100 WBC (0); Platelet Count 172 Thou/mm3 (140-440); RDW Standard Deviation 44.7 fL (35.1-43.9); Red Blood Count 4.04 Miln/mm3 (4.50-5.90); White Blood Count 9.8 Thou/mm3 (3.8-10.6)
[2025-05-02 05:42] LABS: Albumin, Serum 3.9 gm/dL (3.5-5.0); Anion Gap 10 (7-16); BUN/Creatinine Ratio 21 Ratio (12-20); Blood Urea Nitrogen 17 mg/dL (9-23); Calcium 8.8 mg/dL (8.3-10.6); Calcium (Corrected) 8.9 mg/dL (8.5-10.1); Carbon Dioxide 25.4 mMol/L (20.0-31.0); Chloride 106 mMol/L (98-107); Creatinine (Component) 0.8 mg/dL (0.6-1.3); Estimated Creatinine Clearance 179.7 mL/min (>60); Glucose 370 mg/dL (74-106); Magnesium 2.1 mg/dL (1.6-2.6); Osmolality,Calculated 297 (275-295); Phosphorous 3.9 mg/dL (2.4-5.1); Potassium 4.4 mMol/L (3.4-5.1); Sodium 141 mMol/L (136-145); eGFR > 60 See Note
[2025-05-02] MEDS: PROPOFOL 1,000 MG IVPB 1,000 MG/100 ML VIAL 25.32 MG IV (05:47)
[2025-05-02] MEDS: INSULIN LISPRO (AdmeLOG) 1 UNIT/0.01 ML UNIT 10 UNIT SC (05:55)
--- NOTE | 2025-05-02 07:03 | XR_ITS ---
EXAMINATION: AP chest single view TECHNIQUE: AP portable semiupright chest single view Date and time: May 02, 2025, 0716 hours, comparison April 30, 2025 INDICATIONS: Shortness of breath today. FINDINGS: Mild enlargement cardiac contour Moderate vascular congestion. Suspicious for early pneumonia right base Endotracheal tube tip 4.6 cm above luis armando The orogastric tube is in the stomach, the tip is below the level of the film IMPRESSION: Suspicious for early pneumonia right base
[2025-05-02] MEDS: INSULIN REG 100 UNITS/100 ML 100 UNIT in PRE-MIXED 1 BAG 16.94 UNIT IV (07:57)
[2025-05-02] MEDS: cefTRIAXone/D5w 1gm IV premix 1 GM/50 ML BAG IV (09:17)
[2025-05-02] MEDS: DEXAMETHASONE SOD PHOS INJ 4 MG/ML VIAL IVP ×2 (09:18→20:55)
[2025-05-02] MEDS: levETIRAcetam INJ 100 MG/ML VIAL 5ML 1000 MG IVP ×2 (09:20→20:53)
[2025-05-02 10:05] LABS: Magnesium 2.0 mg/dL (1.6-2.6); Phosphorous 3.1 mg/dL (2.4-5.1); Potassium 3.9 mMol/L (3.4-5.1)
--- NOTE | 2025-05-02 11:06 | PC.CM ---
Addendum entered by Renetta Liu RN 05/02/25 18:42: I updated the bedside nurse. [facility] still need authorization from patient's insurance. They have accepted patient, they are just waiting for insurance from patient's insurance. Addendum entered by Renetta Liu RN 05/02/25 18:30: I received a call from Florinda with [employer] phone # . She took my information and she asked me to fax over information. She provided me with he fax # [phone]. I sent information. Addendum entered by Renetta Liu RN 05/02/25 18:13: 1420 I received a call back from Shelbi with [facility] and she states we will nee authorization from [employer], the medical group that oversees patient. I called and left a message with Karyn/ Juanita Pratt. Original Note: [id number] I called and left a message with Shelbi with [employer] phone # . I gave detailed information and asked for a call back. [id number] I received a call from Jayla with the the transfer center. She states patient has been tentatively accepted by their neurosurgeon pavilion cutter. They need authorization from from insurance. She states they will accept a verbal auth. She stated they will take a verbal okay from the insurance. [address] Sanders and I updated her on transfer. I let her know we are waiting on authorization. [facility] is interested in patient, but they will not move forward without authoritarian.
--- NOTE | 2025-05-02 11:21 | ESPR_ITS ---
<Statement entered by Joseph Lynn MD - 05/03/25 12:11> TOTAL TIME: 45MINUTES ON DIRECT MEDICAL CARE, MANAGEMENT - COORDINATION AND COUNSELING > 50% OF TOTAL TIME I saw and evaluated the patient. I reviewed the resident?s note and agree with findings and plan as documented in the resident?s note. Passed a spontaneous breathing trial and extubated without incident No seizures identified on EEG and no obvious seizures while in ICU Continue Keppra Continue Decadron Insulin drip started for difficult to manage hyperglycemia in the setting of new onset type 2 diabetes <Statement entered by Herve Sanders MD - 05/02/25 11:56> Patient was seen and examined in the ICU this morning. No acute overnight events were reported. This morning, patient was weaned off on sedation and was extubated successfully. Patient has been on continuous EEG. Blood sugars were still uptrending around 300 therefore patient was started on insulin drip to control blood sugars. He has been requiring high dose of insulin drip therefore he will stay in the ICU for now. Hyperglycemia is attributed to steroids and uncontrolled diabetes A1c 10. Tube feeds were discontinued as patient is extubated now. Labs revealed hemoglobin stable 12. WBC 9.8. Kidney functions are stable. Electrolytes unremarkable. Transfer nurse asked for another neuroexam to evaluate for new neurological symptoms. Patient is alert and oriented x 2 not to time and has no acute new neurological findings. Will continue with Keppra 1000 twice daily per neuro recommendations. Continue with insulin drip for hyperglycemia. Seizure precautions as needed. Will do a speech eval later today to evaluate for swallow screen. All labs and orders were reviewed. I discussed and supervised with the international trade teacher physician who took care of this patient. I personally saw and examined the patient. I agree with most of the assessment and plan. Disclaimer: Despite multiple revisions, due to the dictation software being used, the document bellow may not be free of grammatical errors including phonetic/typographic errors. However, this does not deter from our commitment to providing health care in the patient's best interest in mind. Plan of care discussed with attending Physician Dr. Leah Sanders MD PGY-3 Documentation for date of: 05/02/25 Subjective Subjective Interval history: Mr. Aldrich is a 45-year-old male with medical issues of obesity BMI 53.8, no known medical conditions, who was brought into the ED from home by ambulance after seizure-like activity at home. Most of the history obtained from ED documentation, as per mother at bedside, patient has never had this seizure-like symptoms in the past. Paramedics reported that mother was present at the scene and witnessed hearing strange noises from the patient's room. When paramedics arrived at scene patient was in a postictal state, GCS of 5 and snoring. After about 5-10 minutes patient became combative agitated followed by a tonic-clonic seizure lasting about 1 minute. Fingerstick blood glucose check en route to the hospital was 315. In the ED, vitals showed Tachycardia 128-130 bpm, tachypnea 21?24, blood pressure 153/83., Temp within normal limits. Initial blood work was remarkable for WBC 19.6 with lymphocyte and neutrophil predominance, chemistry panel showed blood glucose 352, hyperphosphatemia 5.5. ABG showed pH 7.28, CO2 48 and bicarb 19.9 on CHEM panel. Lactic acid 15 at 7 PM lab draw. Urinalysis remarkable for 2+ protein, 4+ glucose, 1+ blood, 15 RBC, 10 epithelial cells and 9 hyaline cast, 9 WBC and rare bacteria. On imaging, chest x-ray remarkable for mild perihilar congestion, no consolidations noted. CT abdomen pelvis showed colonic diverticulosis, thickened gallbladder, but no signs of ischemic bowel. Head CT ordered by ED, but not taken. Patient was given 2 L bolus in the ED, in addition to 1 g loading dose of Keppra. He was also started on propofol and fentanyl post intubation. He was also given loading dose 2 g Rocephin for possible UTI. ED attending Dr. Garcia called night hospitalist team at 1904 on 04/30/2025. Per ED physician, he contacted deck and hull assembler Dr. Lynn and provided this patient information. Per Dr Garcia- Dr Lynn recommended admission to ICU. Patient was admitted for new onset seizures s/p intubation. Neurology consulted for further recommendations. Pending Head CT at this time of admission. Interval History: 05/01/2025: This morning patient continued to be sedated and intubated from overnight. Patient's Head CT was done and was read as having a 32 x 30 mm calcified tumor mass left frontal with marked surrounding edema, most consistent with meningioma. ICU team overnight was in contact with [facility] who relayed that they will not need an MRI due to lack of 'Stealth Protocol' here at [facility], pending insurance processing for transfer. Patient is planned to be weaned off of sedation with plans to extubate due to transfer process seeming like it will not occur soon or today, pending insurance processing. Patient currently has a RASS score of -5 with a RASS goal of 0 for mentation assessment followed by pressure support followed extubation attempt, as appropriate. Patient's vitals are stable. Patient had a loading dose of keppra given and has been scheduled keppra 1000 mg bid. Patient is continuing dexamethasone, but decreased to 4 mg IV BID. Will continue to follow up with transfer nurse. 05/02/2025: Patient had no acute overnight events. Transfer nurse inquired about how patient has done today, was informed that patient was successfully extubated and is tolerating well. Also informed them about patient's neuro exam shortly after being extubated with tube feeds being held during this time. Transfer nurse informed the team that the insurance authorization is still pending. Patient is becoming more alert and oriented as he was just weaned off of sedation this morning. Patient is making good urine and his vitals are stable. Patient was started on insulin drip for continued elevated blood sugar levels after increasing long acting, short acting, sliding scale insulin and being on steroids on the previous day without success in lowering blood sugars adequately. Speech evaluation was ordered for patient s/p extubation. Patient continues to be on his anti-seizure medication and is planned to finish his EEG monitoring today; no seizures noted since being in ICU Exam Vital Signs Temp Pulse Resp BP Pulse Ox O2 Del Method FiO2 97.8 F 88 19 149/84 H 99 Mechanical Ventilation 35 05/02/25 04:00 05/02/25 10:11 05/02/25 06:15 05/02/25 10:11 05/02/25 10:11 05/01/25 16:00 05/02/25 10:11 Narrative Exam General: Resting in bed; A&Ox2 (person, place) Skin: Small LT buttock abscess/folliculitis, draining purulent discharge HENT: NCAT, not icteric. External ears normal. No rhinorrhea. Dry mucous membranes; Leukoplakia Cardiovascular: Regular rate and rhythm, no murmur, +S1/S2. Respiratory: Lungs CTAB (limited by body habitus) GI: Soft, nontender, non-distended. No guarding or rebound tenderness. : No suprapubic tenderness. Extremities: no edema, no cyanosis, no clubbing. Extremity pulses present Neuro: PERRL; CN 2-12 assessed/intact; Strength 3/5 upper extremities, 2/5 lower extremities (recently off of sedation); sensation intact and equal; Babinkski reflex absent bilaterally Objective Labs 05/02/25 04:35 05/02/25 09:30 Labs: Laboratory Results - last 24 hr 05/01/25 05/02/25 05/02/25 14:01 04:27 04:35 WBC 9.8 RBC 4.04 L Hgb 12.1 L Hct 36.3 L MCV 90 MCH 30.0 MCHC 33.3 RDW Std Deviation 44.7 H Plt Count 172 Neut % (Auto) 83 H Lymph % (Auto) 11 Hemphill % (Auto) 6 Eos % (Auto) 0 Baso % (Auto) 0 Neut # (Auto) 8.1 H Lymph # (Auto) 1.0 Hemphill # (Auto) 0.6 Eos # (Auto) 0.0 Baso # (Auto) 0.0 Immature Gran # (Auto) 0.03 H Absolute Nucleated RBC 0.00 Immature Gran % 0 Nucleated RBC % 0 Puncture Site Left Radial ABG pH 7.38 ABG pCO2 45 ABG pO2 82 L D ABG HCO3 27 H ABG O2 Saturation 97 ABG Base Excess 1 FiO2 21 Sodium 141 Potassium 4.4 Chloride 106 Carbon Dioxide 25.4 Anion Gap 10 BUN 17 Creatinine 0.8 Estim Creat Clear Calc 179.7 eGFR > 60 BUN/Creatinine Ratio 21 H Glucose 370 H Calculated Osmolality 297 H Lactic Acid 1.5 Calcium 8.8 Corrected Calcium 8.9 Phosphorus 3.9 Magnesium 2.1 Albumin 3.9 05/02/25 09:30 WBC RBC Hgb Hct MCV MCH MCHC RDW Std Deviation Plt Count Neut % (Auto) Lymph % (Auto) Hemphill % (Auto) Eos % (Auto) Baso % (Auto) Neut # (Auto) Lymph # (Auto) Hemphill # (Auto) Eos # (Auto) Baso # (Auto) Immature Gran # (Auto) Absolute Nucleated RBC Immature Gran % Nucleated RBC % Puncture Site ABG pH ABG pCO2 ABG pO2 ABG HCO3 ABG O2 Saturation ABG Base Excess FiO2 Sodium Potassium 3.9 D Chloride Carbon Dioxide Anion Gap BUN Creatinine Estim Creat Clear Calc eGFR BUN/Creatinine Ratio Glucose Calculated Osmolality Lactic Acid Calcium Corrected Calcium Phosphorus 3.1 Magnesium 2.0 Albumin ABG Interpretation ABG results: 04/30/25 04/30/25 05/01/25 18:19 21:09 01:15 ABG pH 7.28 L 7.31 L 7.43 D ABG pCO2 48 50 H 38 D ABG pO2 191 H 161 H D 148 H ABG HCO3 23 25 25 ABG O2 Saturation 100 H 100 H 100 H ABG Base Excess -4 L -2 1 05/02/25 04:27 ABG pH 7.38 ABG pCO2 45 ABG pO2 82 L D ABG HCO3 27 H ABG O2 Saturation 97 ABG Base Excess 1 Quality Measures Quality Measures VTE prophylaxis Assessment & Plan Assessment Current Active Medications: Generic Name Dose Route Start Last Admin Trade Name Freq PRN Reason Stop Dose Admin Dexamethasone Sodium Phosphate 4 mg 05/01/25 21:00 05/02/25 09:18 Dexamethasone Sod Phos Inj 4 Mg/Ml Vial IVP 05/31/25 20:59 4 mg BID CRISTIANA Administration Protocol Dextrose 25 ml 05/01/25 07:31 Dextrose 50%-Water Inj 50 Ml Syringe IV 05/31/25 07:30 Q15MIN PRN BG 50-70 responsive npo pt Dextrose 50 ml 05/01/25 07:31 Dextrose 50%-Water Inj 50 Ml Syringe IV 05/31/25 07:30 Q15MIN PRN BG <50 OR BG <70 & pt unresponsive Enoxaparin Sodium 30 mg 05/02/25 21:00 Enoxaparin Sod Inj 30 Mg/0.3 Ml Syringe SC 05/16/25 20:59 BID CRISTIANA Glucagon 1 mg 05/01/25 07:31 Glucagon Inj 1 Mg Vial IM Q15MIN PRN BG <70, and no IV access Glucagon 1 mg 05/02/25 07:04 Glucagon Inj 1 Mg Vial IM Q15MIN PRN BG <70, and no IV access Ceftriaxone Sodium/Dextrose 1 gm in 50 mls @ 100 mls/hr 05/01/25 09:00 05/02/25 09:17 Rocephin/D5w 1gm Iv Premix IV 05/07/25 08:59 100 mls/hr QDAY CRISTIANA Administration Midazolam HCl 100 mg in 100 mls @ 1 mls/hr 04/30/25 19:49 05/01/25 09:30 Versed Pf Inj In Ns Premix IV 05/05/25 19:48 0 mg/hr On Hold: 05/01/25 09:30 .Q24H PRN 0 mls/hr PER PROTOCOL Titration Protocol 1 MG/HR Propofol 1,000 mg in 100 mls @ 5.064 mls/hr 05/01/25 09:30 05/02/25 08:47 Diprivan Ivpb IV 05/30/25 17:13 0 mcg/kg/min .[id number] PRN 0 mls/hr PER PROTOCOL Titration Protocol 5 MCG/KG/MIN Insulin Human Regular 100 unit 100 mls @ 16.94 mls/hr 05/02/25 07:26 05/02/25 10:00 / IV Miscellaneous Supplies IV 06/01/25 07:25 0.1 unit/kg/hr .Q5H55M PRN 16.94 mls/hr PER PROTOCOL Titration Protocol 0.1 UNIT/KG/HR Levetiracetam 1,000 mg 05/01/25 13:20 05/02/25 09:20 Levetiracetam Inj 100 Mg/Ml Vial 5ml IVP 05/31/25 13:19 1,000 mg Q12HR CRISTIANA Administration Ondansetron HCl 4 mg 04/30/25 19:10 Ondansetron Inj 2 Mg/Ml Inj 2 Ml IVP 05/30/25 19:09 Q6H PRN NAUSEA OR VOMITING Protocol Plan Patient is a 45 year old male admitted for seizures, new onset s/p intubation for resp support. NEURO Seizure, new onset 2/2 Left Brain Frontal lobe tumor mass OFF sedation Dx: - Per mother and paramedics, patient had new onset seizure-like activity at home and was brought to the ED - Patient was intubated in the ED to protect airway - Received call for admission @ 1904. Per ED physician, sign out given to Dr. Lynn who recommended admission to ICU. - CT Head showed 32 x 30 mm calcified tumor mass left frontal convexity with marked surrounding edema, most consistent with meningioma; Shift of the frontal horns to the right at least 5 mm - Process in place to transfer patient for urgent neurosurgical intervention to [facility], pending insurance authorization. Rx: - Weaned off sedation -> extubated - EEG extended monitoring planned to complete today - Scheduled Keppra 1000 mg IV BID - Dexamethasone changed to 4 mg IV BID - In-house neurology consulted for further evaluation, appreciate kiley RRx: - He was given 2 L IV fluid bolus in the ED along with a 1g x 1 and 2g x 1 loading dose of Keppra - Patient was also started on fentanyl and propofol, changed to propofol and Versed for sedation after intubation. CVS No active problems PULM Extubated Dx: - Intubated/Sedated in the ED to protect airway given declining mental status, GCS 3 - Most recent ABG 05/02 showed pH 7.38, pco2 45, po2 82, bicarb 27 - Patient was on pressure support before getting extubated successfully, tolerating well. Rx: - Will continue to monitor respiratory status, oxygenation, make sure airway is protected. GI/Hep Colonic diverticulosis GB thickening/calcification Dx: - CT abdomen pelvis: colonic diverticulosis, thickened gallbladder, but no signs of ischemic bowel. Rx: - No active symptoms at this time RENAL Proteinuria Likely due to uncontrolled diabetes Dx: -UA showed 2+ protein, 4+ glucose -UOP last 24 hours 1310 ml Rx: -Will need outpatient f/u for diabetes control/optimization Anion gap metabolic acidosis, RESOLVED Hyperosmolar hyperNatremia, RESOLVED Dx: - AG = 22, LA = 15 --> Gap resolved, lactic acid 1.7 - CT abdomen pelvis does no show ischemic bowel. - Corrected sodium= 147 -> 145 Rx: - Patient was given 1 L LR bolus + 1 L NS bolus in the ED - q4H Renal Panel checks. Will give D5 or 1/2 NS if Na continues to worsen ENDO Uncontrolled T2DM Dx: -Patint present with blood sugars of 352 -> 407 -05/01 A1c 10.0% -Patient currently NPO with plans to start tube feeds, keeping in mind patient is on dexamethasone -05/02: glucose 370 Rx: -Started Insulin drip -Bedside glucose checks q1hr -mag, phos, potassium q4hr checks -hypoglycemic protocol in place -Consulted Retort Load Expediter for tube feeds RRx: -Discontinued 30 units degludec SC q day -Discontinued Sliding Scale Insulin step 3 HLD Dx: -No previous medical history or medication usage -Lipid panel LDL 128, HDL 37 Rx: -Will start statin when able to tolerate PO -Recommend f/u outpatient Morbid Obesity Dx: - BMI 53.8, chronic - Patient is independent at home, able to carry ADLs without assistance - As per mother at bedside, no sudden weight gain or loss HEME/ONC Anemia 2/2 hemodilution Dx: -hgb 12.1 (12.5) stable -no signs/symptoms of active bleeding Rx: -continue to trend hgb, monitor for s/s of bleeding ID Community Acquired Pneumonia Dx: - CT AP showed Bibasilar Pneumonia - ED gave loading dose 2 g Rocephin Rx: - Continue Rocephin 1 g daily - Blood cultures, ET Tube culture, MRSA culture pending ICU Health maintenance: Dispo: Admit to ICU for new onset seizure s/p intubation Diet: NPO DVT ppx: Enoxaparin 30mg SC BID GI ppx: not indicated Mechanical ventilation: s/p extubation 05/02 Sedation: none IV lines: 2 pIV [place]: Yes Central line: No Arterial line: No Code status: FULL CODE Patient plan of care was discussed with the attending physician, Dr. Lynn & senior resident Dr. Marilyn Tolbert MD PGY-1
[2025-05-02] MEDS: INSULIN REG 100 UNITS/100 ML 100 UNIT in PRE-MIXED 1 BAG 8.47 UNIT IV (13:30)
--- NOTE | 2025-05-02 14:45 | PC.SS ---
SS update: Patient extubated today, pending transfer.
[2025-05-02 20:29] LABS: Albumin, Serum 3.8 gm/dL (3.5-5.0); Anion Gap 9 (7-16); BUN/Creatinine Ratio 23 Ratio (12-20); Blood Urea Nitrogen 14 mg/dL (9-23); Calcium 8.9 mg/dL (8.3-10.6); Calcium (Corrected) 9.1 mg/dL (8.5-10.1); Carbon Dioxide 26.6 mMol/L (20.0-31.0); Chloride 107 mMol/L (98-107); Creatinine (Component) 0.6 mg/dL (0.6-1.3); Estimated Creatinine Clearance 240.2 mL/min (>60); Glucose 169 mg/dL (74-106); Osmolality,Calculated 289 (275-295); Phosphorous 3.4 mg/dL (2.4-5.1); Potassium 3.8 mMol/L (3.4-5.1); Sodium 143 mMol/L (136-145); eGFR > 60 See Note
[2025-05-02] MEDS: Magnesium Sulfate 2 GM Ivpb 2 GM/50 ML BAG IV (20:53)
[2025-05-02] MEDS: ENOXAPARIN SOD INJ 30 MG/0.3 ML SYRINGE SC (20:55)
[2025-05-02] MEDS: RINGERS LACTATED 1000 ML 1,000 ML 250 ML IV (22:30)
[2025-05-02] MEDS: POTASSIUM CHL 10 mEq IVPB 10 MEQ/100 ML BAG 50 MEQ IV (22:30)
[2025-05-03] VITALS (44 sets, daily range): BP systolic 98–173; BP diastolic 66–114; PULSE 55–95; RESP 11–20; TEMP 36.2–36.6; O2SAT 96–100; BMI 56.0
[2025-05-03] MEDS: POTASSIUM CHL 10 mEq IVPB 10 MEQ/100 ML BAG 50 MEQ IV ×3 (00:16→05:08)
[2025-05-03 01:25] LABS: Albumin, Serum 3.7 gm/dL (3.5-5.0); Anion Gap 10 (7-16); BUN/Creatinine Ratio 22 Ratio (12-20); Blood Urea Nitrogen 13 mg/dL (9-23); Calcium 8.6 mg/dL (8.3-10.6); Calcium (Corrected) 8.8 mg/dL (8.5-10.1); Carbon Dioxide 26.3 mMol/L (20.0-31.0); Chloride 108 mMol/L (98-107); Creatinine (Component) 0.6 mg/dL (0.6-1.3); Estimated Creatinine Clearance 240.2 mL/min (>60); Glucose 144 mg/dL (74-106); Osmolality,Calculated 289 (275-295); Phosphorous 3.9 mg/dL (2.4-5.1); Potassium 4.1 mMol/L (3.4-5.1); Sodium 144 mMol/L (136-145); eGFR > 60 See Note
[2025-05-03] MEDS: INSULIN REG 100 UNITS/100 ML 100 UNIT in PRE-MIXED 1 BAG IV (01:32)
[2025-05-03] MEDS: RINGERS LACTATED 1000 ML 1,000 ML 250 ML IV (02:49)
[2025-05-03 05:51] LABS: Basophils # (Auto) 0.0 Thou/mm3 (0.0-0.2); Basophils % (Auto) 0 % (0-2.5); Eosinophils # (Auto) 0.0 Thou/mm3 (0.0-0.5); Eosinophils % (Auto) 0 % (0-10); Hematocrit 35.9 % (41.0-53.0); Hemoglobin 11.9 g/dL (13.5-16.0); Immature Granulocytes Auto 0.03 Thou/mm3 (0.00-0.00); Lymphocytes # (Auto) 1.2 Thou/mm3 (1.0-4.8); Lymphocytes % (Auto) 15 % (10-50); Mean Corpuscular HGB Conc 33.1 g/dl (31.0-37.0); Mean Corpuscular Hemoglobin 30.1 pg (25.0-35.0); Mean Corpuscular Volume 91 fL (80-100); Monocytes # (Auto) 0.7 Thou/mm3 (0.0-0.8); Monocytes % (Auto) 9 % (0-12); Neutrophils # (Auto) 6.2 Thou/mm3 (1.8-7.7); Neutrophils % (Auto) 76 % (37-80); Nucleated Red Blood Cell # 0.00 Thou/mm3 (0.00-0.00); Nucleated Red Blood Cell % 0 /100 WBC (0); Platelet Count 161 Thou/mm3 (140-440); RDW Standard Deviation 45.8 fL (35.1-43.9); Red Blood Count 3.96 Miln/mm3 (4.50-5.90); White Blood Count 8.1 Thou/mm3 (3.8-10.6)
[2025-05-03 06:31] LABS: Alanine Aminotransferase 19 U/L (10-49); Albumin, Serum 3.8 gm/dL (3.5-5.0); Albumin/Globulin Ratio 1.4 (1.2-2.2); Anion Gap 11 (7-16); Aspartate Amino Transferase 24 U/L (0-34); BUN/Creatinine Ratio 23 Ratio (12-20); Bilirubin,Total 0.6 mg/dL (0.3-1.2); Blood Urea Nitrogen 16 mg/dL (9-23); Calcium 8.6 mg/dL (8.3-10.6); Calcium (Corrected) 8.8 mg/dL (8.5-10.1); Carbon Dioxide 27.0 mMol/L (20.0-31.0); Chloride 106 mMol/L (98-107); Creatinine (Component) 0.7 mg/dL (0.6-1.3); Estimated Creatinine Clearance 205.9 mL/min (>60); Globulin 2.8 gm/dL (2.3-3.5); Glucose 168 mg/dL (74-106); Osmolality,Calculated 292 (275-295); Phosphorous 4.8 mg/dL (2.4-5.1); Potassium 4.5 mMol/L (3.4-5.1); Sodium 144 mMol/L (136-145); Total Protein 6.6 gm/dL (5.7-8.2); eGFR > 60 See Note
[2025-05-03 07:44] LABS: Alkaline Phosphatase 69 U/L (46-116)
--- NOTE | 2025-05-03 09:09 | PC.CM ---
Addendum entered by Renetta Liu RN 05/03/25 12:03: Packet given to Jim bed side nurse. I set up transport with [facility] for 1500. they will come sooner if they have a unit available. I called shipping/receiving clerk and gave her the information. Addendum entered by eRnetta Liu RN 05/03/25 11:04: 1055 Patient has been accepted to [facility] with Dr. Oshea. Patient will be going to room 1006. The number to call and give report is [phone]. I spoke to nurse and gave him update. Patient will be taken off insulin drip and will not need a nurse ride along. I will complete packet and make a CD. Addendum entered by Renetta Liu RN 05/03/25 09:38: 0930 I received a call from Tara at [facility] and she states they have a bed for patient. She was going to reach out to her doctor to have him speak to Dr. Lynn. Original Note: 829 I called and spoke to Tara transfer nurse at [facility]. I let her know I received authorization from patient's insurance. I faxed over the authorization paperwork that was sent to me. I called Jim bedside nurse and gave him an update.
[2025-05-03] MEDS: levETIRAcetam INJ 100 MG/ML VIAL 5ML 1000 MG IVP (09:11)
[2025-05-03] MEDS: DEXAMETHASONE SOD PHOS INJ 4 MG/ML VIAL IVP (09:12)
[2025-05-03] MEDS: cefTRIAXone/D5w 1gm IV premix 1 GM/50 ML BAG IV (09:12)
[2025-05-03] MEDS: ENOXAPARIN SOD INJ 30 MG/0.3 ML SYRINGE SC (09:13)
[2025-05-03] MEDS: INSULIN DEGLUDEC 5 UNIT/0.05 ML (PER 5 UNITS) 50 UNIT SC (09:13)
[2025-05-03 09:31] LABS: Albumin, Serum 3.9 gm/dL (3.5-5.0); Anion Gap 9 (7-16); BUN/Creatinine Ratio 23 Ratio (12-20); Blood Urea Nitrogen 16 mg/dL (9-23); Calcium 8.7 mg/dL (8.3-10.6); Calcium (Corrected) 8.8 mg/dL (8.5-10.1); Carbon Dioxide 28.9 mMol/L (20.0-31.0); Chloride 106 mMol/L (98-107); Creatinine (Component) 0.7 mg/dL (0.6-1.3); Estimated Creatinine Clearance 211.8 mL/min (>60); Glucose 169 mg/dL (74-106); Magnesium 2.1 mg/dL (1.6-2.6); Osmolality,Calculated 292 (275-295); Phosphorous 4.4 mg/dL (2.4-5.1); Potassium 4.2 mMol/L (3.4-5.1); Sodium 144 mMol/L (136-145); eGFR > 60 See Note
--- NOTE | 2025-05-03 10:21 | PD.RESPRO ---
Documentation for date of: 05/03/25 Exam Vital Signs Temp Pulse Resp BP Pulse Ox O2 Del Method FiO2 97.8 F 60 15 133/90 H 99 Mechanical Ventilation 30 05/03/25 04:00 05/03/25 07:01 05/03/25 07:01 05/03/25 07:01 05/03/25 07:01 05/01/25 16:00 05/03/25 06:41 Objective Labs 05/03/25 05:00 05/03/25 12:12 Labs: Laboratory Results - last 24 hr 05/02/25 05/02/25 05/03/25 09:30 19:50 00:49 WBC RBC Hgb Hct MCV MCH MCHC RDW Std Deviation Plt Count Neut % (Auto) Lymph % (Auto) Pickett % (Auto) Eos % (Auto) Baso % (Auto) Neut # (Auto) Lymph # (Auto) [place]ett # (Auto) Eos # (Auto) Baso # (Auto) Immature Gran # (Auto) Absolute Nucleated RBC Immature Gran % Nucleated RBC % Sodium 143 144 Potassium 3.9 D 3.8 4.1 Chloride 107 108 H Carbon Dioxide 26.6 26.3 Anion Gap 9 10 BUN 14 13 Creatinine 0.6 0.6 Estim Creat Clear Calc 240.2 240.2 eGFR > 60 > 60 BUN/Creatinine Ratio 23 H 22 H Glucose 169 H D 144 H Calculated Osmolality 289 289 Calcium 8.9 8.6 Corrected Calcium 9.1 8.8 Phosphorus 3.1 3.4 3.9 Magnesium 2.0 Total Bilirubin AST ALT Alkaline Phosphatase Total Protein Albumin 3.8 3.7 Globulin Albumin/Globulin Ratio 05/03/25 05/03/25 05:00 08:25 WBC 8.1 RBC 3.96 L Hgb 11.9 L Hct 35.9 L MCV 91 MCH 30.1 MCHC 33.1 RDW Std Deviation 45.8 H Plt Count 161 Neut % (Auto) 76 Lymph % (Auto) 15 Pickett % (Auto) 9 Eos % (Auto) 0 Baso % (Auto) 0 Neut # (Auto) 6.2 Lymph # (Auto) 1.2 Pickett # (Auto) 0.7 Eos # (Auto) 0.0 Baso # (Auto) 0.0 Immature Gran # (Auto) 0.03 H Absolute Nucleated RBC 0.00 Immature Gran % 0 Nucleated RBC % 0 Sodium 144 144 Potassium 4.5 4.2 Chloride 106 106 Carbon Dioxide 27.0 28.9 Anion Gap 11 9 BUN 16 16 Creatinine 0.7 0.7 Estim Creat Clear Calc 205.9 211.8 eGFR > 60 > 60 BUN/Creatinine Ratio 23 H 23 H Glucose 168 H 169 H Calculated Osmolality 292 292 Calcium 8.6 8.7 Corrected Calcium 8.8 8.8 Phosphorus 4.8 4.4 Magnesium 2.1 Total Bilirubin 0.6 AST 24 ALT 19 Alkaline Phosphatase 69 D Total Protein 6.6 Albumin 3.8 3.9 Globulin 2.8 Albumin/Globulin Ratio 1.4 ABG Interpretation ABG results: 04/30/25 04/30/25 05/01/25 18:19 21:09 01:15 ABG pH 7.28 L 7.31 L 7.43 D ABG pCO2 48 50 H 38 D ABG pO2 191 H 161 H D 148 H ABG HCO3 23 25 25 ABG O2 Saturation 100 H 100 H 100 H ABG Base Excess -4 L -2 1 05/02/25 04:27 ABG pH 7.38 ABG pCO2 45 ABG pO2 82 L D ABG HCO3 27 H ABG O2 Saturation 97 ABG Base Excess 1 Quality Measures Quality Measures VTE prophylaxis Assessment & Plan Assessment Current Active Medications: Generic Name Dose Route Start Last Admin Trade Name Freq PRN Reason Stop Dose Admin Dexamethasone Sodium Phosphate 4 mg 05/01/25 21:00 05/03/25 09:12 Dexamethasone Sod Phos Inj 4 Mg/Ml Vial IVP 05/31/25 20:59 4 mg BID CRISTIANA Administration Protocol Dextrose 25 ml 05/01/25 07:31 Dextrose 50%-Water Inj 50 Ml Syringe IV 05/31/25 07:30 Q15MIN PRN BG 50-70 responsive npo pt Dextrose 50 ml 05/01/25 07:31 Dextrose 50%-Water Inj 50 Ml Syringe IV 05/31/25 07:30 Q15MIN PRN BG <50 OR BG <70 & pt unresponsive Enoxaparin Sodium 30 mg 05/02/25 21:00 05/03/25 09:13 Enoxaparin Sod Inj 30 Mg/0.3 Ml Syringe SC 05/16/25 20:59 30 mg BID CRISTIANA Administration Glucagon 1 mg 05/02/25 07:04 Glucagon Inj 1 Mg Vial IM Q15MIN PRN BG <70, and no IV access Ceftriaxone Sodium/Dextrose 1 gm in 50 mls @ 100 mls/hr 05/01/25 09:00 05/03/25 09:12 Rocephin/D5w 1gm Iv Premix IV 05/07/25 08:59 100 mls/hr QDAY CRISTIANA Administration Insulin Human Regular 100 unit 100 mls @ 16.94 mls/hr 05/02/25 07:26 05/03/25 06:00 / IV Miscellaneous Supplies IV 06/01/25 07:25 0.05 unit/kg/hr .Q5H55M PRN 8.47 mls/hr PER PROTOCOL Titration Protocol 0.1 UNIT/KG/HR Lactated Ringer's 1,000 mls @ 250 mls/hr 05/02/25 22:20 05/03/25 02:49 Lactated Ringers IV 06/01/25 22:19 250 mls/hr .Q4H CRISTIANA Administration Insulin Degludec 50 unit 05/03/25 09:00 05/03/25 09:13 Insulin Degludec 5 Unit/0.05 Ml (Per 5 Units) SC 06/02/25 08:59 50 unit BID CRISTIANA Administration Insulin Human Lispro 0 unit 05/03/25 10:00 Insulin Lispro (Admelog) 1 Unit/0.01 Ml Unit SC 06/02/25 09:59 Q4HR CRISTIANA Protocol Levetiracetam 1,000 mg 05/01/25 13:20 05/03/25 09:11 Levetiracetam Inj 100 Mg/Ml Vial 5ml IVP 05/31/25 13:19 1,000 mg Q12HR CRISTIANA Administration Ondansetron HCl 4 mg 04/30/25 19:10 Ondansetron Inj 2 Mg/Ml Inj 2 Ml IVP 05/30/25 19:09 Q6H PRN NAUSEA OR VOMITING Protocol
--- NOTE | 2025-05-03 12:37 | ESDS_ITS ---
<Statement entered by Joseph Lynn MD - 05/04/25 11:59> TOTAL TIME: 45MINUTES ON DIRECT MEDICAL CARE, MANAGEMENT - COORDINATION AND COUNSELING > 50% OF TOTAL TIME I saw and evaluated the patient. I reviewed the resident?s note and agree with findings and plan as documented in the resident?s note. Patient's condition was improving. He remains successfully extubated and was following full commands without any neurological deficits. We continued with steroids and transition off of high-dose insulin drip. I spoke with the neurocritical care physician at [facility] who agreed to accept the patient for continued management of the brain tumor with vasogenic edema. He was in stable condition prior to transfer <Statement entered by Herve Sanders MD - 05/03/25 17:47> I discussed and supervised with the analysis intern physician who took care of this patient. I personally saw and examined the patient. I agree with most of the assessment and plan. Disclaimer: Despite multiple revisions, due to the dictation software being used, the document bellow may not be free of grammatical errors including phonetic/typographic errors. However, this does not deter from our commitment to providing health care in the patient's best interest in mind. Plan of care discussed with attending Physician Dr. Leah Sanders MD PGY-3 Planned Discharge Date 05/03/25 DS: Providers Provider Date of admission: 04/30/25 19:21 Primary care physician: Ramila Calloway MD Admitting Provider: Curtis Velasquez MD Attending Provider on Admission: Joseph Lynn MD Consults: 04/30/25 20:58 Referral - Information Clerk Brokerage Stat Service Needed for Transfer: Neurosurgery Addl Comments:: LT frontal meningioma 04/30/25 23:19 Consult to Neurology / Tele-Neurology Stat Comment: Consulting Provider: Jaiden Brandon 05/01/25 12:58 Referral Respiratory Therapy Routine Comment: advance ETT by 2cm pls 05/01/25 13:42 Referral Registered Dietitian Routine Comment: 05/02/25 11:19 Referral Speech Therapy Routine Comment: 05/03/25 08:00 Referral - GRADUATE ASSISTANT Skin Care Consultant Routine Comment: swallow navneet Hurtado Attending Provider on DC: Joseph Lynn MD Discharging Provider: Joseph Lynn MD DS: Diagnosis Problem List Completed Was Problem List Reviewed/Reconciled?: Yes Hospital Course Hospital Course Hospital course: Patient is a 45-year-old male with no known past medical history who is brought into the emergency department at [facility] after having seizure-like activity at home. Patient was also noted to have tonic-clonic seizure lasting about 1 minute during EMS transfer to the hospital. Patient was intubated in the ED for airway protection due to poor GCS on presentation. Labs in the ED were notable for WBC count of 19.6, blood glucose 352, lactic acid 15. Head CT was ordered, but not before being admitted to the ICU. After admission to the ICU head CT revealed a 32 x 30 mm calcified tumor mass of the left frontal lobe with marked surrounding edema, most consistent with meningioma; shift of the frontal horns to the right at least 5 mm, per the radiology read. In the ED the patient was given IV fluid boluses and a loading dose of Keppra and was resumed on scheduled Keppra. . Patient was initiated on dexamethasone due to brain mass after head CT imaging was done. Patient was also started on Rocephin for pneumonia. That night of admission, the ICU team [facility] was in contact with [facility] who relayed there initial request for the patient of continuous EEG and MRI. Patient was only able to go through with continuous EEG as [facility] did not have the stealth protocol for the MRI. The following day, the patient was successfully extubated and was tolerating breathing on room air very well. Patient was examined and was found to have no neurofocal deficits, able to protect airway, able to speak, alert and oriented, exhibited 5 out of 5 strength to gravity, had a GCS score of 15 and was able to follow all commands. No seizures were noted to be found by the patient during his stay in the ICU. Patient also found to have uncontrolled diabetes, was started on an insulin drip that has since been discontinued due to control of the glucose levels and has been started on insulin subcutaneous medication. Patient was transferred out of ICU at [facility] in stable hemodynamic condition at ~315 pm for neurosurgery eval of Meningioma. Imaging Findings: CT Head: 32 x 30 mm calcified tumor mass left frontal convexity with marked surrounding edema; Shift of the frontal horns to the right at least 5 mm Discharge Instructions Transferring Patient to [facility] for neurosurgery eval of Meningioma. Admission Diagnosis Seizure, new onset Left Brain Frontal lobe tumor mass Colonic diverticulosis GB thickening/calcification Proteinuria Anion gap metabolic acidosis Hyperosmolar hyperNatremia Uncontrolled T2DM HLD Morbid Obesity Anemia Community Acquired Pneumonia Patient plan of care was discussed with the attending physician, Dr. Lynn & resident physician Dr. Marilyn Tolbert MD PGY-1 Time Spent with Patient Time attestation: Total time spent providing and/or coordinating discharge services: Time spent: Greater than 30 minutes Exam Vital Signs Temp Pulse Resp BP Pulse Ox O2 Del Method FiO2 97.8 F 91 12 108/66 99 Mechanical Ventilation 30 05/03/25 04:00 05/03/25 10:01 05/03/25 10:01 05/03/25 10:01 05/03/25 10:01 05/01/25 16:00 05/03/25 06:41 Narrative Exam General: Resting in bed; A&Ox3, conversant Skin: Small LT buttock abscess/folliculitis, minimal discharge HENT: NCAT, not icteric. External ears normal. No rhinorrhea. Dry mucous membranes Cardiovascular: Regular rate and rhythm, no murmur, +S1/S2. Respiratory: Lungs CTAB (limited by body habitus) GI: Soft, nontender, non-distended. No guarding or rebound tenderness. : No suprapubic tenderness. Extremities: no edema, no cyanosis, no clubbing. Extremity pulses present Neuro: PERRL; CN 2-12 assessed/intact; Strength 5/5 upper extremities, 5/5 lower extremities (recently off of sedation); sensation intact and equal; Babinkski reflex absent bilaterally Discharge Plan Plan Patient Disposition: Xfer Other Facility Pt Being Transferred to: [facility] Disposition Comment: ICU to neuro ICU Patient condition on transfer: Stable Prescriptions/Referrals Prescriptions/Med Rec: No Action No Known Home Medications Referrals: Ramila Calloway MD [Primary Care Provider, Medical] Patient/Caregiver Discharge Instructions Print Language: Swedish Stand Alone Forms: Mary Award Info., Patient Portal Info Letter Quality Discharge Quality Measures VTE prophylaxis (enoxaparin 30 mg SC )
[2025-05-03 12:53] LABS: Albumin, Serum 3.8 gm/dL (3.5-5.0); Anion Gap 9 (7-16); BUN/Creatinine Ratio 23 Ratio (12-20); Blood Urea Nitrogen 14 mg/dL (9-23); Calcium 8.6 mg/dL (8.3-10.6); Calcium (Corrected) 8.8 mg/dL (8.5-10.1); Carbon Dioxide 27.9 mMol/L (20.0-31.0); Chloride 106 mMol/L (98-107); Creatinine (Component) 0.6 mg/dL (0.6-1.3); Estimated Creatinine Clearance 247.1 mL/min (>60); Glucose 174 mg/dL (74-106); Osmolality,Calculated 289 (275-295); Phosphorous 4.1 mg/dL (2.4-5.1); Potassium 4.1 mMol/L (3.4-5.1); Sodium 143 mMol/L (136-145); eGFR > 60 See Note
[2025-05-03] MEDS: ACETAMINOPHEN 325 MG TABLET 650 MG PO (13:01)
== END 2025-05-03 15:02 | disposition other institution (70) | DRG 53 ==
LOC: SERX 19:21 → S2SX 20:54 → SERHOLD 05-01 05:58 → S2SX 05-01 05:58
PROVIDERS: Student in an Organized Health Care Education/Training Program; Admitting Provider Student in an Organized Health Care Education/Training Program; Emergency Provider Family Medicine; PCP Student in an Organized Health Care Education/Training Program; Visit Provider Student in an Organized Health Care Education/Training Program
DX: G40.89 Other seizures (principal); Z68.43 Body mass index [BMI] 50.0-59.9, adult; E66.01 Morbid (severe) obesity due to excess calories; J96.01 Acute respiratory failure with hypoxia; E83.39 Other disorders of phosphorus metabolism; G93.40 Encephalopathy, unspecified; J96.00 Acute respiratory failure, unspecified whether with hypoxia or hypercapnia; E78.5 Hyperlipidemia, unspecified; J18.9 Pneumonia, unspecified organism; E87.20 Acidosis, unspecified; E87.0 Hyperosmolality and hypernatremia; G93.6 Cerebral edema; E11.65 Type 2 diabetes mellitus with hyperglycemia; D64.9 Anemia, unspecified; N39.0 Urinary tract infection, site not specified; K57.30 Diverticulosis of large intestine without perforation or abscess without bleeding
CPT/HCPCS: 36415; 36600; 70450; 71045; 74174; 74176; 80053; 80061; 80069; 81001; 82550; 82803; 83036; 83605; 83735; 84100; 84132; 85025; 85610; 87040; 87081; 87205; 93225; 94002; 94003; 94660; 95813; 96361; 96365; 96366; 96375; 99291; 99292; A4649; J0330; J0696; J1100; J1650; J1815; J1953; J2060; J2251; J2704; J3010; J3475; J3480; J7030; J7050; J7120; Q9967; A9270